=== PATIENT | male | born 1940 | race Caucasian/White ===

== ENCOUNTER → 2018-08-28 | Outpatient (CLI) | payer MEDICARE, OTHER ==
--- NOTE | 2018-08-28 11:07 | XR ---
EXAMINATION TYPE: XR chest 2V DATE OF EXAM: 08/28/2018 COMPARISON: Prior chest x-ray and chest CT 03/23/2014 HISTORY: Shortness of breath and cough, emphysema TECHNIQUE: Frontal and lateral views of the chest are obtained. FINDINGS: Hyperinflation is compatible with underlying COPD. Interstitium is increased as on prior e xam. Aorta is dense. Prominence of pulmonary artery may be due to pulmonary hypertension. Heart size is stable. No evident airspace disease, pneumothorax, or pleural effusion. Coronary artery calcificat ions are present. IMPRESSION: Interstitial lung disease, emphysema, coronary artery disease, additional findings above .
== END | disposition home or self-care (01) ==
LOC: RADXRMAIN 09:56
PROVIDERS: ATTEND Internal Medicine
DX: J84.9 Interstitial pulmonary disease, unspecified (principal); J43.9 Emphysema, unspecified; I25.10 Atherosclerotic heart disease of native coronary artery without angina pectoris
CPT/HCPCS: 71046

== ENCOUNTER 2019-08-20 10:39 | Inpatient (IN) | payer MEDICARE, OTHER ==
[2019-08-20] MEDS ORDERED: SODIUM CHLORIDE 0.9% 1,000 ML IV STA (11:12)
[2019-08-20] MEDS ORDERED: SODIUM CHLORIDE 0.9% 500 ML 500 ML IV STA (11:12)
[2019-08-20] MEDS ORDERED: IPRATROPIUM-ALBUTEROL 3 ML NEB INHALATION STA (11:13)
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
--- NOTE | 2019-08-20 11:56 | XR ---
EXAMINATION TYPE: XR chest 2V DATE OF EXAM: 08/20/2019 COMPARISON: 08/28/2018 TECHNIQUE: PA and lateral views submitted. HISTORY: Shortness of breath FINDINGS: The lungs are clear and there is no pneumothorax, pleural effusion, or focal pneumonia. Diffuse hyp erexpansion. Diffuse osteopenia with arthropathy of the shoulders. Atherosclerotic change aorta. Subs egmental changes involving the lung bases. IMPRESSION: 1. COPD correlate for chronic interstitial lung disease with basilar atelectasis favored over pneumon ia. Findings similar to prior exam..
[2019-08-20 12:07] LABS: Partial Thromboplastin Time 28.2 sec (22.0-30.0)
[2019-08-20 12:18] LABS: Albumin 4.2 g/dL (3.5-5.0); Calcium 8.9 mg/dL (8.4-10.2); Magnesium 1.8 mg/dL (1.6-2.3); Phosphorus 4.4 mg/dL (2.5-4.5); Potassium 4.6 mmol/L (3.5-5.1); Total Bilirubin 0.4 mg/dL (0.2-1.3); Total Protein 7.1 g/dL (6.3-8.2)
[2019-08-20 12:20] LABS: HCT 43.1 % (39.0-53.0); HGB 14.5 gm/dL (13.0-17.5); MCH 34.1 pg (25.0-35.0); MCHC 33.6 g/dL (31.0-37.0); MCV 101.2 fL (80.0-100.0); Macrocytosis Slight; Mean Platelet Volume 8.2; Platelet Count 192 k/uL (150-450); RBC 4.26 m/uL (4.30-5.90); RDW 13.4 % (11.5-15.5); WBC 6.5 k/uL (3.8-10.6)
[2019-08-20 13:27] LABS: Appearance,Urine Clear (Clear); Bacteria,Urine Rare /hpf; Bilirubin,Urine Negative (Negative); Blood,Urine Trace (Negative); Color,Urine Yellow; Glucose,Urine (UA) Negative (Negative); Hyaline Casts,Urine 52 /lpf (0-2); Ketones,Urine Negative (Negative); Leukocyte Esterase,Urine Large (Negative); Mucus,Urine Occasional /hpf; Nitrite,Urine Negative (Negative); PH, Urine 5.5 (5.0-8.0); Protein,Urine Trace (Negative); RBC,Urine 5 /hpf (0-5); Specific Gravity,Urine 1.022 (1.001-1.035); Squamous Epithelial Cell,Urine 2 /hpf (0-4); Urobilinogen,Urine <2.0 mg/dL (<2.0); WBC,Urine 42 /hpf (0-5)
[2019-08-20 13:53] LABS: Band Neutrophils % 1 %; Myelocytes # (M) 0.07 k/uL (0); Myelocytes % 1 %; Nucleated Red Blood Cells 0 /100 WBC (0-0)
[2019-08-20 13:58] LABS: Lymphocytes # (M) 1.56 k/uL (1.0-4.8); Metamyelocytes # (M) 0.07 k/uL (0); Metamyelocytes % 1 %; Monocytes # (M) 0.78 k/uL (0-1.0); Neutrophils % (M) 60 %; Total Cells Counted 200
[2019-08-20] MEDS ORDERED: NALOXONE 0.4 MG/ML 1 ML VIAL IV PRN (14:03)
[2019-08-20] MEDS: SODIUM CHLORIDE 0.9% 1,000 ML IV SCH ×2 (17:11→20:56)
[2019-08-20] MEDS ORDERED: NITROGLYCERIN SL TABS 0.4 MG TAB SUBLINGUAL PRN (18:21)
[2019-08-20] MEDS ORDERED: ALBUTEROL NEBULIZED 2.5 MG/3 ML INHALATION PRN (18:21)
[2019-08-20] MEDS ORDERED: HYDROcodone/APAP 5-325MG 1 EACH TAB PO PRN (18:21)
[2019-08-20] MEDS ORDERED: ALPRAZolam 0.25 MG TAB PO PRN (18:21)
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
[2019-08-20] MEDS: APIXABAN 2.5 MG TABLET PO SCH (20:55)
[2019-08-20] MEDS: valACYclovir HCL 1,000 MG TABLET PO SCH (20:55)
[2019-08-20] MEDS: METOPROLOL TARTRATE 25 MG TAB PO SCH (20:55)
[2019-08-21 07:46] LABS: ALT 13 U/L (4-49); AST 19 U/L (17-59); African American GFR (CKD) >90 (>60 ml/min/1.73 sqM); Albumin 3.2 g/dL (3.5-5.0); Alkaline Phosphatase 58 U/L (38-126); Anion Gap 7 mmol/L; Blood Urea Nitrogen 18 mg/dL (9-20); Calcium 7.9 mg/dL (8.4-10.2); Carbon Dioxide 25 mmol/L (22-30); Chloride 101 mmol/L (98-107); Glucose 90 mg/dL (74-99); Non-African American GFR(CKD) 80 (>60 ml/min/1.73 sqM); Potassium 4.7 mmol/L (3.5-5.1); Sodium 133 mmol/L (137-145); Total Bilirubin 0.3 mg/dL (0.2-1.3); Total Protein 5.7 g/dL (6.3-8.2)
[2019-08-21 08:44] LABS: HCT 38.5 % (39.0-53.0); HGB 12.2 gm/dL (13.0-17.5); MCH 32.5 pg (25.0-35.0); MCHC 31.7 g/dL (31.0-37.0); MCV 102.3 fL (80.0-100.0); Macrocytosis Slight; Mean Platelet Volume 7.5; Platelet Count 157 k/uL (150-450); RBC 3.76 m/uL (4.30-5.90); RDW 13.5 % (11.5-15.5); WBC 4.3 k/uL (3.8-10.6)
[2019-08-21] MEDS: SERTRALINE 25 MG TAB PO SCH (08:48)
[2019-08-21] MEDS: valACYclovir HCL 1,000 MG TABLET PO SCH ×2 (08:48→21:51)
[2019-08-21] MEDS: ASPIRIN 81 MG PO SCH (08:48)
[2019-08-21] MEDS: PANTOPRAZOLE 40 MG TABLET PO SCH (08:48)
[2019-08-21] MEDS: METOPROLOL TARTRATE 25 MG TAB PO SCH ×2 (08:48→21:51)
[2019-08-21] MEDS: APIXABAN 2.5 MG TABLET PO SCH ×2 (08:48→21:51)
[2019-08-21 12:05] LABS: Eosinophils # (M) 0.13 k/uL (0-0.7); Lymphocytes # (M) 0.86 k/uL (1.0-4.8); Monocytes # (M) 0.65 k/uL (0-1.0); Neutrophils # (M) 2.67 k/uL (1.3-7.7); Neutrophils % (M) 62 %; Nucleated Red Blood Cells 0 /100 WBC (0-0); Total Cells Counted 100
--- NOTE | 2019-08-21 13:56 | P.PN ---
Subjective Progress Note Date: 08/21/19 Prem Dorsey is an 79-year-old male who presented to [facility] emergency room with a chief complaint of generalized weakness he was evaluated in emergency room and had evidence of urinary tract infection and hypotension he was given IV fluid boluses was started on IV antibiotic and was admitted to medical floor for further evaluation. Patient was recently seen in the office with large eruption of herpes zoster on his chest he was started on oral Valtrex. Patient has a known history of coronary artery disease, COPD, hypertension, gout, history of atrial fibrillation, and history of anemia. Patient use to smoke he quit many years ago he does not drink alcohol or use any kind of illicit drugs On 08/21/2019 patient was seen and examined on the medical floor he is alert and oriented 3 in no apparent distress, he is feeling better he is still complaining of some generalized weakness he is complaining of rash with burning on his right breast area otherwise no complaints there is no fever or chills no headache or dizziness no chest pain no shortness of breath no cough no nausea or vomiting no abdominal pain no diarrhea no burning was urination no frequency or urgency no hematuria Objective - Vital Signs Vital signs: Vital Signs Temp 98.3 F 08/21/19 07:50 Pulse 71 08/21/19 07:50 Resp 18 08/21/19 07:50 BP 123/72 08/21/19 07:50 Pulse Ox 93 L 08/21/19 07:50 Intake & Output 08/20/19 08/21/19 08/21/19 18:59 06:59 18:59 Output Total 200 200 Balance -200 -200 Weight 62.596 kg Output: Urine 200 200 Other: Voiding Method Toilet Toilet Urinal Urinal # Voids 1 2 2 # Bowel Movements 1 2 2 - Exam In general patient is alert and oriented 3 in no apparent distress HEENT head normocephalic and atraumatic Neck is supple no JVD no goiter no lymphadenopathy Chest exam reveals a few scattered rhonchi with mild wheezing Cardiac exam reveals regular heart sounds S1 and S2 no gallops no murmurs Abdomen is soft nontender no organomegaly with normal bowel sounds Extremity exam reveals no edema no cyanosis or clubbing Neurological examination reveals no gross focal deficits Skin exam reveals large area of rash extending from the right breast all the way to the back was multiple areas of ulcerations. - Labs CBC & Chem 7: 08/21/19 06:54 08/21/19 06:54 Labs: Abnormal Lab Results - Last 24 Hours (Table) 08/20/19 08/21/19 08/21/19 Range/Units 11:17 06:54 06:54 RBC 3.76 L (4.30-5.90) m/uL Hgb 12.2 L (13.0-17.5) gm/dL Hct 38.5 L (39.0-53.0) % MCV 102.3 H (80.0-100.0) fL Lymphocytes # (Manual) 0.86 L (1.0-4.8) k/uL Metamyelocytes # (Man) 0.07 H (0) k/uL Myelocytes # (Manual) 0.07 H (0) k/uL Sodium 133 L (137-145) mmol/L Calcium 7.9 L (8.4-10.2) mg/dL Total Protein 5.7 L (6.3-8.2) g/dL Albumin 3.2 L (3.5-5.0) g/dL Microbiology - Last 24 Hours (Table) 08/20/19 13:10 Urine Culture - Preliminary Urine,Voided Assessment and Plan Plan: 1. Urinary tract infection, maintained on IV antibiotic ceftriaxone 2. Sepsis with hypotension 3. Underlying history of COPD 4. Underlying history of hypertension 5. Underlying history of coronary artery disease 6. Large area of herpes zoster eruption, maintained on Valtrex At this time patient was started on IV fluid and IV antibiotic Blood culture and urine culture were ordered, infectious disease consultation requested Continue with Valtrex for herpes zoster eruption Will follow closely
[2019-08-22] MEDS: SODIUM CHLORIDE 0.9% 1,000 ML IV SCH (06:27)
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
[2019-08-22 08:14] LABS: HGB 11.5 gm/dL (13.0-17.5); MCH 32.4 pg (25.0-35.0); MCHC 31.9 g/dL (31.0-37.0); MCV 101.4 fL (80.0-100.0); Macrocytosis Slight; Mean Platelet Volume 7.5; Platelet Count 171 k/uL (150-450); RBC 3.55 m/uL (4.30-5.90); RDW 13.4 % (11.5-15.5); WBC 4.2 k/uL (3.8-10.6)
[2019-08-22 08:15] VITALS: TEMP 98.2
[2019-08-22 08:30] LABS: ALT 12 U/L (4-49); AST 20 U/L (17-59); African American GFR (CKD) >90 (>60 ml/min/1.73 sqM); Alkaline Phosphatase 51 U/L (38-126); Anion Gap 4 mmol/L; Blood Urea Nitrogen 12 mg/dL (9-20); Calcium 8.2 mg/dL (8.4-10.2); Carbon Dioxide 27 mmol/L (22-30); Chloride 101 mmol/L (98-107); Glucose 92 mg/dL (74-99); Non-African American GFR(CKD) 82 (>60 ml/min/1.73 sqM); Potassium 4.6 mmol/L (3.5-5.1); Sodium 132 mmol/L (137-145); Total Bilirubin 0.3 mg/dL (0.2-1.3); Total Protein 5.7 g/dL (6.3-8.2)
[2019-08-22 09:13] LABS: Eosinophils # (M) 0.29 k/uL (0-0.7); Lymphocytes # (M) 0.97 k/uL (1.0-4.8); Monocytes # (M) 0.42 k/uL (0-1.0); Neutrophils # (M) 2.52 k/uL (1.3-7.7); Neutrophils % (M) 60 %; Nucleated Red Blood Cells 0 /100 WBC (0-0); Total Cells Counted 100
[2019-08-22] MEDS: ASPIRIN 81 MG PO SCH (09:41)
[2019-08-22] MEDS: valACYclovir HCL 1,000 MG TABLET PO SCH (09:41)
[2019-08-22] MEDS: SERTRALINE 25 MG TAB PO SCH (09:41)
[2019-08-22] MEDS: METOPROLOL TARTRATE 25 MG TAB PO SCH (09:41)
[2019-08-22] MEDS: APIXABAN 2.5 MG TABLET PO SCH (09:41)
[2019-08-22] MEDS: PANTOPRAZOLE 40 MG TABLET PO SCH (09:42)
--- NOTE | 2019-08-22 13:44 | P.DS ---
Providers Date of admission: 08/22/19 08:58 Expected date of discharge: 08/22/19 Attending physician: Carlo Kennedy Consults: 08/20/19 18:33 Consult Physician Routine Consulting Provider: Tatiana Campos Consult Reason/Comments: sepsis, UTI Do you want consulting provider notified?: Yes Primary care physician: Carlo Kennedy [facility] Course: Diagnosis on discharge: 1. Urinary tract infection, maintained on IV antibiotic ceftriaxone 2. Sepsis with hypotension 3. Underlying history of COPD 4. Underlying history of hypertension 5. Underlying history of coronary artery disease 6. Large area of herpes zoster eruption, maintained on Valtrex 7. Acute renal failure due to acute kidney injury due to prerenal azotemia Hospital course: Prem Dorsey is an 79-year-old male who presented to [facility] emergency room with a chief complaint of generalized weakness he was evaluated in emergency room and had evidence of urinary tract infection and hypotension he was given IV fluid boluses was started on IV antibiotic and was admitted to medical floor for further evaluation. Patient was recently seen in the office with large eruption of herpes zoster on his chest he was started on oral Valtrex. Patient has a known history of coronary artery disease, COPD, hypertension, gout, history of atrial fibrillation, and history of anemia. Patient use to smoke he quit many years ago he does not drink alcohol or use any kind of illicit drugs On 08/21/2019 patient was seen and examined on the medical floor he is alert and oriented 3 in no apparent distress, he is feeling better he is still complaining of some generalized weakness he is complaining of rash with burning on his right breast area otherwise no complaints there is no fever or chills no headache or dizziness no chest pain no shortness of breath no cough no nausea or vomiting no abdominal pain no diarrhea no burning was urination no frequency or urgency no hematuria On 08/22/2019 patient was seen and examined on the medical floor he is alert and oriented 3 in no apparent distress there is no fever or chills no headache or dizziness no chest pain no shortness of breath no cough no nausea or vomiting no abdominal pain no diarrhea no burning with urination no frequency or urgency and no hematuria, urine culture revealed 50-100,000 colonies of genital mark. Patient is feeling well his blood pressure has normalized his kidney function has improved. Patient will be switched to oral antibiotic and will be discharged home he will be followed in our office within 1 week. He was told to continue course of Valtrex for the large area of herpes zoster eruption on his chest and back. Patient Condition at Discharge: Serious Plan - Discharge Summary New Discharge Prescriptions: New Cefdinir [Omnicef] 300 mg PO Q12HR 10 Days #20 capsule valACYclovir HCL [Valtrex] 1,000 mg PO BID tablet Continue Nitroglycerin Sl Tabs [Nitrostat] 0.4 mg SUBLINGUAL Q5M PRN PRN Reason: Chest Pain ALPRAZolam 0.25 mg PO Q8H PRN PRN Reason: Anxiety Metoprolol Tartrate 25 mg PO BID Omeprazole [PriLOSEC] 40 mg PO AC-BRKFST #90 cap HYDROcodone/APAP 5-325MG [[place] 5-325] 1 tab PO TID PRN PRN Reason: Pain Apixaban [Eliquis] 2.5 mg PO BID Aspirin EC [Ecotrin Low Dose] 81 mg PO DAILY Sertraline HCl [Zoloft] 25 mg PO DAILY Ergocalciferol [Vitamin D2 (DRISDOL)] 50,000 unit PO MO Albuterol Inhaler [Ventolin Hfa Inhaler] 2 puff INHALATION RT-QID PRN PRN Reason: Shortness Of Breath Discharge Medication List ALPRAZolam 0.25 mg PO Q8H PRN 03/18/14 [History] Nitroglycerin Sl Tabs [Nitrostat] 0.4 mg SUBLINGUAL Q5M PRN 03/18/14 [History] Metoprolol Tartrate 25 mg PO BID 03/19/14 [History] Omeprazole [PriLOSEC] 40 mg PO AC-BRKFST #90 cap 03/21/14 [Rx] Albuterol Inhaler [Ventolin Hfa Inhaler] 2 puff INHALATION RT-QID PRN 08/20/19 [History] Apixaban [Eliquis] 2.5 mg PO BID 08/20/19 [History] Aspirin EC [Ecotrin Low Dose] 81 mg PO DAILY 08/20/19 [History] Ergocalciferol [Vitamin D2 (DRISDOL)] 50,000 unit PO MO 08/20/19 [History] HYDROcodone/APAP 5-325MG [[place] 5-325] 1 tab PO TID PRN 08/20/19 [History] Sertraline HCl [Zoloft] 25 mg PO DAILY 08/20/19 [History] Cefdinir [Omnicef] 300 mg PO Q12HR 10 Days #20 capsule 08/22/19 [Rx] valACYclovir HCL [Valtrex] 1,000 mg PO BID tablet 08/22/19 [Rx] Follow up Appointment(s)/Referral(s): Carlo Kennedy MD [Primary Care Provider] - 1-2 days (office closed at time of discharge. Please call to make appointment) Patient Instructions/Handouts: Dehydration (DC), Urinary Tract Infection in Men (DC)
[2019-08-22 15:08] VITALS: BP 168/84; PULSE 57; RESP 16
--- NOTE | 2019-08-22 15:29 | PN ---
PROGRESS NOTE DATE OF SERVICE: 08/22/2019 REASON FOR FOLLOWUP: 1. Shingles. 2. Possible UTI. INTERVAL HISTORY: The patient is currently afebrile. Patient is feeling much better, breathing comfortably. Denies having any chest pain. No shortness of breath or cough. No abdominal pain or diarrhea. Overall feeling better. PHYSICAL EXAMINATION: Blood pressure 116/70 with a pulse of 58, temperature 98.2. He is 93% on 2 L nasal cannula. General description is an elderly male, up in the bed in no distress. RESPIRATORY SYSTEM: Unlabored breathing, clear to auscultation anteriorly. HEART: S1, S2. Regular rate and rhythm. ABDOMEN: Soft, no tenderness. LABS: Hemoglobin 11.5, white count 4.2, creatinine 0.84, blood and urine so far negative. DIAGNOSTIC IMPRESSION AND PLAN: 1. Patient admitted to the hospital with generalized weakness, likely multifactorial, possible dehydration with medication effect and possible component of urinary tract infection. The patient seemed to have shown overall clinical improvement. Continue short course of oral Ceftin. 2. Patient with shingles. Finish a 7-day course of oral Valtrex. Local care can be with dry Aquacel dressing to keep the area dry and off the pressure. MMODL / IJN: [id number] /
[2019-08-22] MEDS ORDERED: CEFDINIR 300 MG CAP PO SCH (21:00)
[2019-08-25] MEDS ORDERED: ERGOCALCIFEROL 50,000 UNIT CAP PO SCH (09:00)
== END 2019-08-22 15:13 | disposition home or self-care (01) | DRG 872 ==
LOC: EC 10:39 → 4SSUR 14:03 → OBSVTOIN 08-22 08:58
PROVIDERS: ADMIT Internal Medicine; ATTEND Internal Medicine
DX: A41.9 Sepsis, unspecified organism (principal); N17.9 Acute kidney failure, unspecified; N39.0 Urinary tract infection, site not specified; E87.1 Hypo-osmolality and hyponatremia; I42.9 Cardiomyopathy, unspecified; I11.0 Hypertensive heart disease with heart failure; E78.5 Hyperlipidemia, unspecified; I25.10 Atherosclerotic heart disease of native coronary artery without angina pectoris; B02.9 Zoster without complications; E86.0 Dehydration; I48.91 Unspecified atrial fibrillation; J44.9 Chronic obstructive pulmonary disease, unspecified; I50.9 Heart failure, unspecified; Z11.59 Encounter for screening for other viral diseases; Z79.899 Other long term (current) drug therapy; Z79.01 Long term (current) use of anticoagulants; Z79.82 Long term (current) use of aspirin; Z88.1 Allergy status to other antibiotic agents; I25.2 Old myocardial infarction; Z95.5 Presence of coronary angioplasty implant and graft; Z98.890 Other specified postprocedural states; Z90.49 Acquired absence of other specified parts of digestive tract; Z87.891 Personal history of nicotine dependence; Z80.3 Family history of malignant neoplasm of breast; Z80.0 Family history of malignant neoplasm of digestive organs
CPT/HCPCS: 36415; 71046; 80053; 81001; 83605; 83735; 84100; 84443; 84484; 85025; 85610; 85730; 87040; 87086; 93005; 94640; 96361; 96365; 99291

== ENCOUNTER 2019-09-15 12:14 | Observation (INO) | payer MEDICARE, OTHER ==
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
[2019-09-15 12:56] LABS: Basophils # (A) 0.1 k/uL (0-0.2); Basophils % (A) 1 %; Eosinophils # (A) 0.3 k/uL (0-0.7); Eosinophils % (A) 4 %; HCT 36.1 % (39.0-53.0); HGB 12.1 gm/dL (13.0-17.5); Lymphocytes # (A) 1.9 k/uL (1.0-4.8); Lymphocytes % (A) 25 %; MCH 34.7 pg (25.0-35.0); MCHC 33.6 g/dL (31.0-37.0); MCV 103.2 fL (80.0-100.0); Macrocytosis Slight; Mean Platelet Volume 7.9; Monocytes # (A) 0.5 k/uL (0-1.0); Monocytes % (A) 7 %; Neutrophils # (A) 4.7 k/uL (1.3-7.7); Neutrophils % (A) 62 %; Platelet Count 232 k/uL (150-450); RDW 15.7 % (11.5-15.5); WBC 7.6 k/uL (3.8-10.6)
[2019-09-15 13:05] LABS: Albumin 4.1 g/dL (3.5-5.0); Bilirubin,Unconjugated 0.5 mg/dL (0.0-1.1); Calcium 9.2 mg/dL (8.4-10.2); Magnesium 1.8 mg/dL (1.6-2.3); Potassium 4.8 mmol/L (3.5-5.1); Total Bilirubin 0.5 mg/dL (0.2-1.3); Total Protein 6.6 g/dL (6.3-8.2)
[2019-09-15 13:14] LABS: Partial Thromboplastin Time 24.1 sec (22.0-30.0); Prothrombin Time 10.3 sec (9.0-12.0)
[2019-09-15] MEDS ORDERED: PANTOPRAZOLE 40 MG/10 ML VIAL IVP ONE (13:23)
--- NOTE | 2019-09-15 13:24 | XR ---
EXAMINATION TYPE: XR chest 1V portable DATE OF EXAM: 09/15/2019 COMPARISON: 08/20/2019 HISTORY: Chest pain TECHNIQUE: Single frontal view of the chest is obtained. FINDINGS: Diffuse hyperinflation. There is subsegmental changes at both lung bases with no pleural e ffusion or pneumothorax. Diffuse osteopenia and arthropathy of the shoulders. No overt failure. Pulmo nary arteries are prominent in size and there is atherosclerotic change of the aorta. IMPRESSION: 1. COPD with basilar infiltrate or atelectasis. 2. Correlate for pulmonary arterial hypertension.
[2019-09-15] MEDS ORDERED: ONDANSETRON 4 MG/2 ML VIAL IVP PRN (14:08)
[2019-09-15] MEDS ORDERED: NALOXONE 0.4 MG/ML 1 ML VIAL IV PRN (14:08)
[2019-09-15] MEDS: SODIUM CHLORIDE 0.9% 1,000 ML IV SCH (14:36)
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
[2019-09-16] MEDS: SODIUM CHLORIDE 0.9% 1,000 ML IV SCH ×2 (02:37→16:16)
[2019-09-16 07:04] LABS: Basophils # (A) 0.1 k/uL (0-0.2); Basophils % (A) 1 %; Eosinophils # (A) 0.3 k/uL (0-0.7); Eosinophils % (A) 4 %; HCT 33.3 % (39.0-53.0); HGB 11.1 gm/dL (13.0-17.5); Lymphocytes # (A) 1.5 k/uL (1.0-4.8); Lymphocytes % (A) 25 %; MCH 34.2 pg (25.0-35.0); MCHC 33.2 g/dL (31.0-37.0); MCV 103.1 fL (80.0-100.0); Macrocytosis Moderate; Mean Platelet Volume 7.9; Monocytes # (A) 0.5 k/uL (0-1.0); Monocytes % (A) 9 %; Neutrophils # (A) 3.6 k/uL (1.3-7.7); Neutrophils % (A) 60 %; Platelet Count 211 k/uL (150-450); RBC 3.23 m/uL (4.30-5.90); RDW 15.9 % (11.5-15.5)
[2019-09-16 07:15] LABS: Potassium 5.1 mmol/L (3.5-5.1)
[2019-09-16 07:16] LABS: Albumin 3.4 g/dL (3.5-5.0); Calcium 8.5 mg/dL (8.4-10.2); Total Bilirubin 0.7 mg/dL (0.2-1.3); Total Protein 5.8 g/dL (6.3-8.2)
[2019-09-16] MEDS ORDERED: PANTOPRAZOLE 40 MG/10 ML VIAL IV SCH (09:00)
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
[2019-09-16] MEDS: METOPROLOL TARTRATE 25 MG TAB PO SCH ×2 (12:25→22:05)
[2019-09-16 13:58] VITALS: BMI 20.8
--- NOTE | 2019-09-16 17:15 | CONS ---
CONSULTATION DATE OF SERVICE: 09/16/2019 REASON FOR CONSULTATION: Mild anemia and black tarry stool. HISTORY OF PRESENT ILLNESS: The patient is an 79-year-old pleasant white male with history of atrial fibrillation who was on Eliquis, was admitted to the hospital because of black tarry stools that started on Sunday morning. He had about 4 or 5 of these episodes. He took his last dose of Eliquis was yesterday morning. He came into the emergency room, noted to have a hemoglobin of 11 g/dL and admitted to the hospital for further evaluation. Since being in the hospital, he did not have any episodes of further bleeding. He also complaining of epigastric discomfort but no nausea or vomiting. No prior history of peptic ulcer disease. Last EGD was in 2014. PAST MEDICAL HISTORY: Atrial fibrillation, on Eliquis, currently on hold. History of coronary artery disease, congestive heart failure, hypertension, hyperlipidemia. PAST SURGICAL HISTORY: Cardiac catheterization with stent placement, hernia repair, right carotid endarterectomy. MEDICATIONS: At home include Xanax, Nitrostat, metoprolol, Prilosec, Ventolin, Eliquis, aspirin, vitamin B12, [place], sertraline. ALLERGIES: LEVAQUIN. SOCIAL HISTORY: No smoking, no alcohol use. FAMILY HISTORY: Mother had breast cancer. Brother had stomach cancer. REVIEW OF SYSTEMS: CARDIOPULMONARY: No chest pain or shortness of breath. GENITOURINARY: No dysuria or hematuria. MUSCULOSKELETAL: Unremarkable. SKIN: Unremarkable. ENDOCRINE: Unremarkable. PSYCHIATRIC: Unremarkable. NEUROLOGY: Unremarkable. ENT: Vision unremarkable. GI: As mentioned above. HEMATOLOGY: Mild anemia. CONSTITUTIONAL: No recent weight loss. No fever, chills, night sweats. PHYSICAL EXAMINATION: Appears comfortable, in no apparent distress. Vital signs are stable. Blood pressure is 184/81, pulse rate 58, temperature 97.4. HEENT: Examination unremarkable, conjunctivae are pink, sclerae nonicteric, oral cavity no lesions. NECK: No JVD or lymph node enlargement. CHEST: Clear to auscultation. HEART: Regular rate and rhythm. ABDOMEN: Soft, bowel sounds are positive. No organomegaly. Mild tenderness in the epigastric area. EXTREMITIES: No pedal edema. SKIN: No rashes. NEUROLOGIC: Alert and oriented x3. No focal deficits. LABS: WBC is 7.6, hemoglobin 12.1, platelets normal. Hemoglobin today is 11.1. BUN is 23, creatinine 1.23. Stool occult blood positive. IMPRESSION: 1. This is a patient who presents to the hospital with black tarry stools for the last 3 days duration. 2. History of atrial fibrillation on Eliquis for several years, which is on hold since yesterday morning. The initial hemoglobin was 12 and dropped to 11.1 g/dL today. He is hemodynamically stable. He is also complaining of epigastric pain, most likely dealing with peptic ulcer disease or other upper GI pathology. 3. Atrial fibrillation on Eliquis, currently on hold. 4. Mild elevation of BUN. RECOMMENDATIONS: 1. Continue with Protonix 40 mg twice daily. 2. Start on a clear liquid diet. 3. Proceed with an upper endoscopy tomorrow. 4. Continue to hold Eliquis. 5. Monitor CBC on a daily basis. Will follow with you. Thank you for this consultation. MMODL / IJN: [id number] /
--- NOTE | 2019-09-16 19:08 | P.PN ---
Subjective Progress Note Date: 09/16/19 Prem Dorsey, is an 79-year-old male who presented to [facility] emergency room with a chief complaint of black stool that started on Sunday morning, patient had previous history of gastrointestinal bleeding, he also has a known history of atrial fibrillation maintained on Eliquis, he was evaluated in the emergency room and was admitted to medical floor Eliquis was held, and patient was started on IV Protonix, GI consultation was requested. Patient was seen and examined on the medical floor, he also complained of episodes of stabbing pain in the right side of his chest radiating to the back, lasting only a few seconds each time, troponin level were ordered and cardiology consultation was requested. Otherwise patient denies any complaints there is no fever or chills no headache or dizziness no shortness of breath no cough no nausea or vomiting no abdominal pain no diarrhea no burning with urination no frequency or urgency and no hematuria no weakness or numbness in any of his extremities no change in his vision speech or gait. Patient has a known history of hypertension, hyperlipidemia, atrial fibrillation, COPD, previous history of gastrointestinal bleeding, history of depression, and history of coronary artery disease with myocardial infarction in the past. On 09/16/2019 patient was seen and examined on the medical floor he is alert and oriented 3 in no apparent distress there is no fever or chills no headache or dizziness no chest pain no shortness of breath no cough no nausea or vomiting no abdominal pain no diarrhea no burning with urination no frequency or urgency and no hematuria, gastroenterology following awaiting decision regarding possible endoscopy. Objective - Vital Signs Vital signs: Vital Signs Temp 97.5 F L 09/16/19 07:25 Pulse 55 L 09/16/19 07:25 Resp 16 09/16/19 07:25 BP 161/82 09/16/19 07:25 Pulse Ox 99 09/16/19 07:25 Intake & Output 09/15/19 09/16/19 09/16/19 18:59 06:59 18:59 Weight 60.328 kg 60.328 kg Other: Voiding Method Toilet Toilet # Voids 1 1 - Exam In general patient is alert and oriented 3 in no apparent distress HEENT head normocephalic and atraumatic Neck is supple no JVD no goiter no lymphadenopathy Chest exam reveals a few scattered rhonchi no wheezing Cardiac exam reveals irregular heart sounds S1 and S2 no gallops no murmurs Abdomen is soft nontender no organomegaly with normal bowel sounds Extremity exam reveals no edema no cyanosis or clubbing Neurological examination reveals no gross focal deficit - Labs CBC & Chem 7: 09/16/19 06:47 09/16/19 06:47 Labs: Abnormal Lab Results - Last 24 Hours (Table) 09/15/19 09/15/19 09/16/19 Range/Units 12:44 12:44 06:47 RBC 3.50 L 3.23 L (4.30-5.90) m/uL Hgb 12.1 L 11.1 L (13.0-17.5) gm/dL Hct 36.1 L 33.3 L (39.0-53.0) % MCV 103.2 H 103.1 H (80.0-100.0) fL RDW 15.7 H 15.9 H (11.5-15.5) % Sodium 133 L (137-145) mmol/L BUN 23 H (9-20) mg/dL Glucose 123 H (74-99) mg/dL Total Protein (6.3-8.2) g/dL Albumin (3.5-5.0) g/dL 09/16/19 Range/Units 06:47 RBC (4.30-5.90) m/uL Hgb (13.0-17.5) gm/dL Hct (39.0-53.0) % MCV (80.0-100.0) fL RDW (11.5-15.5) % Sodium 135 L (137-145) mmol/L BUN (9-20) mg/dL Glucose (74-99) mg/dL Total Protein 5.8 L (6.3-8.2) g/dL Albumin 3.4 L (3.5-5.0) g/dL Assessment and Plan Plan: 1. Black tarry stools, hemoglobin is stable at 12.1 with check serial CBCs, Eliquis was held, patient was started on IV protonix, GI consultation was requested 2. Episodes of right sided chest pain with check, troponin levels and consult cardiology 3. Underlying history of coronary artery disease 4. Underlying history of atrial fibrillation 5. Previous history of peptic ulcer disease and history of gastrojejunostomy At this time will check serial CBCs serial troponins Consult gastroenterology consult cardiology Will follow closely
[2019-09-16] MEDS: PANTOPRAZOLE 40 MG/10 ML VIAL IV SCH (22:05)
[2019-09-17] MEDS: SODIUM CHLORIDE 0.9% 1,000 ML IV SCH ×2 (04:10→15:33)
[2019-09-17] MEDS: METOPROLOL TARTRATE 25 MG TAB PO SCH (05:20)
[2019-09-17 07:01] LABS: Basophils # (A) 0.1 k/uL (0-0.2); Basophils % (A) 1 %; Eosinophils # (A) 0.3 k/uL (0-0.7); Eosinophils % (A) 4 %; HCT 33.1 % (39.0-53.0); HGB 10.6 gm/dL (13.0-17.5); Lymphocytes # (A) 1.3 k/uL (1.0-4.8); Lymphocytes % (A) 20 %; MCH 33.3 pg (25.0-35.0); MCHC 32.1 g/dL (31.0-37.0); MCV 103.7 fL (80.0-100.0); Macrocytosis Moderate; Mean Platelet Volume 7.5; Monocytes # (A) 0.6 k/uL (0-1.0); Monocytes % (A) 10 %; Neutrophils # (A) 4.1 k/uL (1.3-7.7); Neutrophils % (A) 64 %; Platelet Count 195 k/uL (150-450); RBC 3.19 m/uL (4.30-5.90); RDW 15.6 % (11.5-15.5); WBC 6.4 k/uL (3.8-10.6)
[2019-09-17 07:20] LABS: ALT 9 U/L (4-49); AST 18 U/L (17-59); African American GFR (CKD) >90 (>60 ml/min/1.73 sqM); Albumin 3.3 g/dL (3.5-5.0); Alkaline Phosphatase 43 U/L (38-126); Anion Gap 4 mmol/L; Blood Urea Nitrogen 12 mg/dL (9-20); Calcium 8.6 mg/dL (8.4-10.2); Carbon Dioxide 29 mmol/L (22-30); Chloride 102 mmol/L (98-107); Glucose 94 mg/dL (74-99); Non-African American GFR(CKD) 81 (>60 ml/min/1.73 sqM); Potassium 4.4 mmol/L (3.5-5.1); Sodium 135 mmol/L (137-145); Total Bilirubin 0.6 mg/dL (0.2-1.3); Total Protein 5.5 g/dL (6.3-8.2)
[2019-09-17] MEDS: PANTOPRAZOLE 40 MG/10 ML VIAL IV SCH (07:47)
--- NOTE | 2019-09-17 13:14 | P.PN ---
Subjective HISTORY OF PRESENTING ILLNESS This is a pleasant 79-year-old male past medical history significant for coronary artery disease status post anterior wall myocardial infarction and PCI of the diagonal branch in 2008, paroxysmal atrial fibrillation on long-term anticoagulation, COPD, ischemic cardiomyopathy with improvement after PCI, hype rtension and former nicotine dependence. He follows in the office with Dr. Matthews. He is seen and examined resting comfortably lying flat in bed in no acute distress. He has had no further symptoms of chest discomfort, shortness of breath, dizziness or palpitations. He states he had a black stool last night. He is scheduled to undergo an EGD today. Blood pressure 173/80 heart rate 60 afebrile maintaining oxygen saturation on nasal cannula. Laboratory data reviewed, WBC 6.4, hemoglobin 10.6, platelets 195, sodium 135, potassium 4.4, creatinine 0.88. Echocardiogram has been obtained and will be reviewed. PHYSICAL EXAMINATION CONSTITUTIONAL: No apparent distress. HEENT: Head is normocephalic. Pupils are equal, round. Sclerae anicteric. Mucous membranes of the mouth are moist. No JVD. Right carotid bruit, none on the left. CHEST EXAMINATION: Scattered rhonchi throughout and expiratory wheezes. No rales. No chest wall tenderness is noted on palpation or with deep breathing. HEART EXAMINATION: Regular rate and rhythm. S1, S2 heard. Systolic ejection murmur at the base, no gallops or rub. EXTREMITIES: 2+ peripheral pulses, no lower extremity edema and no calf tenderness. ASSESSMENT Chest pain, atypical for angina. Pleuritic in nature. An acute event has been ruled out. Acute GI bleeding on long-term anticoagulation Paroxysmal atrial fibrillation maintained on Eliquis Coronary artery disease in the setting of an acute anterior wall AR status post PCI Ischemic cardiomyopathy, improved status post PCI COPD on home oxygen with likely acute exacerbation. Hypertension Former nicotine dependence PLAN Continue to hold Eliquis and aspirin pending GI workup. Initiate losartan 25 mg daily. Nurse Practitioner note has been reviewed, I agree with a documented findings and plan of care. Patient was seen and examined. Objective - Vital Signs Vital signs: Vital Signs Temp 97.6 F 09/17/19 07:42 Pulse 60 09/17/19 07:42 Resp 14 09/17/19 07:42 BP 173/80 09/17/19 07:42 Pulse Ox 96 09/17/19 07:42 Intake & Output 09/16/19 09/17/19 09/17/19 18:59 06:59 18:59 Intake Total 240 Balance 240 Weight 60.328 kg Intake: Oral 240 Other: Voiding Method Toilet Toilet Toilet # Voids 1 2 - Labs CBC & Chem 7: 09/17/19 06:27 09/17/19 06:27 Labs: Abnormal Lab Results - Last 24 Hours (Table) 09/17/19 09/17/19 Range/Units 06:27 06:27 RBC 3.19 L (4.30-5.90) m/uL Hgb 10.6 L (13.0-17.5) gm/dL Hct 33.1 L (39.0-53.0) % MCV 103.7 H (80.0-100.0) fL RDW 15.6 H (11.5-15.5) % Sodium 135 L (137-145) mmol/L Total Protein 5.5 L (6.3-8.2) g/dL Albumin 3.3 L (3.5-5.0) g/dL
[2019-09-17] MEDS ORDERED: LOSARTAN 25 MG TAB PO SCH (13:15)
[2019-09-17] MEDS ORDERED: LIDOCAINE 1% INJ 10MG/ML (20 ML MDV) ONE (14:29)
[2019-09-17] MEDS ORDERED: PROPOFOL 10 MG/ML 20 ML VIAL IV ONE (14:29)
[2019-09-17] MEDS ORDERED: IV FLUID CONTINUATION 1,000 ML IV ONE (14:30)
--- NOTE | 2019-09-17 15:16 | P.PCN ---
Date of Procedure: 09/17/19 Description of Procedure: BRIEF HISTORY: Patient is a 79-year-old male currently on anticoagulation therapy for atrial fibrillation who presented with black tarry stools. Hemoglobin 12 and subsequently found to be 11.1. No further signs or symptoms of GI bleeding since that time. Plan for EGD for further evaluation. PROCEDURE PERFORMED: Esophagogastroduodenoscopy. PREOPERATIVE DIAGNOSIS: Melena, anemia of acute blood loss, history of gastrojejunostomy. ESTIMATED BLOOD LOSS: Minimal. IV sedation per anesthesia. PROCEDURE: After informed consent was obtained, the patient was brought into the endoscopy unit. IV sedation was administered by Anesthesia under continuous monitoring. Initially the Olympus GIF-190 video endoscope was inserted into the mouth. Esophagus intubated without any difficulty. It was gradually advanced into the stomach and duodenum and also through the gastric jejunal anastomotic site and into the jejunum. The duodenum appeared normal. The scope was then withdrawn into the stomach and passed through the gastrojejunal anastomotic site into the jejunum which appeared normal with no old blood, active bleed or pathology to explain melena. The scope at this time was withdrawn to the stomach, adequately insufflated with air, and upon careful examination, mucosa of the antrum, body, cardia and the fundus as well as the anastomotic site appeared normal. The scope was then withdrawn into the esophagus. The GE junction was located at 39 cm from the incisors. The esophagus appeared normal. There were no erosions or ulcerations seen and the patient tolerated the procedure well. IMPRESSION: 1. No active bleeding, old blood or pathology to explain melena. 2. Anatomy consistent with prior gastrojejunostomy. RECOMMENDATIONS: The findings of this examination were discussed with the patient and his daughter. Okay to resume diet. Okay to resume medications and anticoagulation. Okay for discharge when otherwise medically stable.
[2019-09-17] MEDS ORDERED: LOSARTAN 25 MG TAB PO STA (15:38)
--- NOTE | 2019-09-17 16:00 | ECHOF ---
Referral Reason:sob, cp, hx cardiomyopathy MEASUREMENTS -------- HEIGHT: 170.2 cm WEIGHT: 60.3 kg BP: RVIDd: 3.2 cm (< 3.3) IVSd: 1.0 cm (0.6 - 1.1) LVIDd: 4.6 cm (3.9 - 5.3) LVPWd: 1.3 cm (0.6 - 1.1) IVSs: 1.7 cm LVIDs: 3.3 cm LVPWs: 1.1 cm LAESV Index (A-L): 30.11 ml/m Ao Diam: 4.1 cm (2.0 - 3.7) AV Cusp: 0.9 cm (1.5 - 2.6) LA Diam: 3.7 cm (2.7 - 3.8) MV EXCURSION: 20.130 mm (> 18.000) MV EF SLOPE: 70 mm/s (70 - 150) EPSS: 1.0 cm MV E Ruben: 0.58 m/s MV DecT: 522 ms MV A Ruben: 0.96 m/s MV E/A Ratio: 0.61 AV maxP.14 mmHg AV meanP.33 mmHg RAP: 5.00 mmHg RVSP: 50.66 mmHg FINDINGS -------- Sinus rhythm. This was a technically adequate study. The left ventricular size is normal. There is mild concentric left ventricular hypertrophy. Overa ll left ventricular systolic function is mild-moderately impaired with, an EF between 40 - 45 %. Mi d anterior LV wall motion is akinetic. Apical anterior LV wall motion is akinetic. Apical later al LV wall motion is akinetic. Apical septum LV wall motion is akinetic. The right ventricle is normal in size. LA is midly dilated 29-33ml/m2. The right atrial size is normal. xx ml of Lumason was utilized for enhancement of images. There is moderate aortic valve sclerosis. There is mild aortic stenosis present. Peak/mean gradie nt across the Aortic Valve is 22.14mmHg / 12.33mmHg. Mild mitral annular calcification present. Mild mitral regurgitation is present. The tricuspid valve appears structurally normal. Mild tricuspid regurgitation present. There is m oderate pulmonary hypertension. The right ventricular systolic pressure, as measured by Doppler, is 50.66mmHg. There is no pulmonic regurgitation present. The aortic root size is normal. IVC Not well visulized. There is no pericardial effusion. CONCLUSIONS -------- 1. There is mild concentric left ventricular hypertrophy. 2. Overall left ventricular systolic function is mild-moderately impaired with, an EF between 40 - 45 %. 3. Mid anterior LV wall motion is akinetic. 4. Apical anterior LV wall motion is akinetic. 5. Apical lateral LV wall motion is akinetic. 6. Apical septum LV wall motion is akinetic. 7. LA is midly dilated 29-33ml/m2. 8. xx ml of Lumason was utilized for enhancement of images. 9. There is moderate aortic valve sclerosis. 10. There is mild aortic stenosis present. 11. Peak/mean gradient across the Aortic Valve is 22.14mmHg / 12.33mmHg. 12. Mild mitral annular calcification present. 13. Mild mitral regurgitation is present. 14. Mild tricuspid regurgitation present. 15. There is moderate pulmonary hypertension. 16. There is no pulmonic regurgitation present. 17. There is no pericardial effusion. [employer] CLERK: Jessika Miller RDCS
--- NOTE | 2019-09-17 18:00 | P.DS ---
Providers Date of admission: 09/15/19 14:08 Expected date of discharge: 09/17/19 Attending physician: Carlo Kennedy Consults: 09/15/19 14:09 Consult Physician Routine Consulting Provider: Violeta Ruiz Consult Reason/Comments: gi bleed Do you want consulting provider notified?: Yes 09/15/19 20:20 Consult Physician Routine Consulting Provider: Bobby Salmeron Consult Reason/Comments: chest pain Do you want consulting provider notified?: Yes, Notify in am Primary care physician: Carlo [place] Course: diagnosis on discharge: 1. Black tarry stools, hemoglobin is stable at 12.1 with check serial CBCs, Eliquis was held, patient was started on IV protonix, GI consultation was requested 2. Episodes of right sided chest pain with check, troponin levels and consult cardiology 3. Underlying history of coronary artery disease 4. Underlying history of atrial fibrillation 5. Previous history of peptic ulcer disease and history of gastrojejunostomy Hospital course: Prem Dorsey, is an 79-year-old male who presented to [facility] emergency room with a chief complaint of black stool that started on Sunday morning, patient had previous history of gastrointestinal bleeding, he also has a known history of atrial fibrillation maintained on Eliquis, he was evaluated in the emergency room and was admitted to medical floor Eliquis was held, and patient was started on IV Protonix, GI consultation was requested. Patient was seen and examined on the medical floor, he also complained of episodes of stabbing pain in the right side of his chest radiating to the back, lasting only a few seconds each time, troponin level were ordered and cardiology consultation was requested. Otherwise patient denies any complaints there is no fever or chills no headache or dizziness no shortness of breath no cough no nausea or vomiting no abdominal pain no diarrhea no burning with urination no frequency or urgency and no hematuria no weakness or numbness in any of his extremities no change in his vision speech or gait. Patient has a known history of hypertension, hyperlipidemia, atrial fibrillation, COPD, previous history of gastrointestinal bleeding, history of depression, and history of coronary artery disease with myocardial infarction in the past. On 09/16/2019 patient was seen and examined on the medical floor he is alert and oriented 3 in no apparent distress there is no fever or chills no headache or dizziness no chest pain no shortness of breath no cough no nausea or vomiting no abdominal pain no diarrhea no burning with urination no frequency or urgency and no hematuria, gastroenterology following awaiting decision regarding possible endoscopy. On 09/17/2019 patient was seen and examined on the medical floor, he is alert and oriented in no apparent distress no U episodes of GI bleeding, patient was evaluated by gastroenterology and underwent EGD, which revealed no evidence of active bleeding or any pathology, patient was cleared by gastroenterology for discharge she was also evaluated by cardiology and was cleared for discharge, patient was restarted on his home medication including anticoagulation and was discharged home on 09/17/2019 he will be followed in our office in 2-3 days Patient Condition at Discharge: Fair Plan - Discharge Summary Discharge Rx Participant: No New Discharge Prescriptions: New Losartan [Cozaar] 25 mg PO DAILY tab Continue ALPRAZolam 0.25 mg PO Q8H PRN PRN Reason: Anxiety Omeprazole [PriLOSEC] 40 mg PO AC-BRKFST #90 cap HYDROcodone/APAP 5-325MG [Antoine 5-325] 1 tab PO TID PRN PRN Reason: Pain Aspirin EC [Ecotrin Low Dose] 81 mg PO DAILY Sertraline HCl [Zoloft] 25 mg PO DAILY Ergocalciferol [Vitamin D2 (DRISDOL)] 50,000 unit PO MO No Action Nitroglycerin Sl Tabs [Nitrostat] 0.4 mg SUBLINGUAL Q5M PRN PRN Reason: Chest Pain Metoprolol Tartrate 25 mg PO BID Apixaban [Eliquis] 2.5 mg PO BID Albuterol Inhaler [Ventolin Hfa Inhaler] 2 puff INHALATION RT-QID PRN PRN Reason: Shortness Of Breath Discharge Medication List ALPRAZolam 0.25 mg PO Q8H PRN 03/18/14 [History] Nitroglycerin Sl Tabs [Nitrostat] 0.4 mg SUBLINGUAL Q5M PRN 03/18/14 [History] Metoprolol Tartrate 25 mg PO BID 03/19/14 [History] Omeprazole [PriLOSEC] 40 mg PO AC-BRKFST #90 cap 03/21/14 [Rx] Albuterol Inhaler [Ventolin Hfa Inhaler] 2 puff INHALATION RT-QID PRN 08/20/19 [History] Apixaban [Eliquis] 2.5 mg PO BID 08/20/19 [History] Aspirin EC [Ecotrin Low Dose] 81 mg PO DAILY 08/20/19 [History] Ergocalciferol [Vitamin D2 (DRISDOL)] 50,000 unit PO MO 08/20/19 [History] HYDROcodone/APAP 5-325MG [Antoine 5-325] 1 tab PO TID PRN 08/20/19 [History] Sertraline HCl [Zoloft] 25 mg PO DAILY 08/20/19 [History] Losartan [Cozaar] 25 mg PO DAILY tab 09/17/19 [Rx] Follow up Appointment(s)/Referral(s): Carlo Kennedy MD [Primary Care Provider] - 1-2 days Isabelle Matthews MD [STAFF PHYSICIAN] - 2 Weeks Patient Instructions/Handouts: Hiatal Hernia (DC) Discharge Disposition: HOME SELF-CARE
[2019-09-19 08:04] VITALS: BP 147/72; PULSE 54; RESP 14; TEMP 97.3
== END 2019-09-17 16:22 | disposition home or self-care (01) ==
LOC: EC 12:14 → 1SOBS 14:08
PROVIDERS: ADMIT Internal Medicine; ATTEND Internal Medicine
DX: K92.1 Melena (principal); D62 Acute posthemorrhagic anemia; D75.89 Other specified diseases of blood and blood-forming organs; R07.89 Other chest pain; E78.5 Hyperlipidemia, unspecified; I11.0 Hypertensive heart disease with heart failure; I25.2 Old myocardial infarction; I25.10 Atherosclerotic heart disease of native coronary artery without angina pectoris; I25.5 Ischemic cardiomyopathy; I27.21 Secondary pulmonary arterial hypertension; I45.2 Bifascicular block; I48.0 Paroxysmal atrial fibrillation; I50.9 Heart failure, unspecified; J44.9 Chronic obstructive pulmonary disease, unspecified; J98.11 Atelectasis; Z79.01 Long term (current) use of anticoagulants; Z79.82 Long term (current) use of aspirin; Z79.899 Other long term (current) drug therapy; Z80.0 Family history of malignant neoplasm of digestive organs; Z80.3 Family history of malignant neoplasm of breast; Z87.11 Personal history of peptic ulcer disease; Z87.891 Personal history of nicotine dependence; Z98.61 Coronary angioplasty status; Z99.81 Dependence on supplemental oxygen; Z11.59 Encounter for screening for other viral diseases; Z88.1 Allergy status to other antibiotic agents
CPT/HCPCS: 93005 ×2; 96361; 96375 ×2; 96376 ×2; 96374; 99285; 36415; 80053 ×3; 84443; 82248; 83605; 83735; 84484 ×2; 85025 ×3; 85610; 85730; 82272; 71045; 43235; G0378 ×3; C8929; U0003; J2001; J2704; C9113 ×3; Q9950; 93306

== ENCOUNTER 2019-11-03 13:40 | Emergency (ER) | payer MEDICARE, OTHER ==
[2019-11-03 13:45] VITALS: TEMP 97.9
[2019-11-03] MEDS ORDERED: SODIUM CHLORIDE 0.9% 500 ML 500 ML IV STA (14:56)
[2019-11-03] MEDS ORDERED: MORPHINE SULFATE 2 MG/ML SYRINGE IVP STA (14:56)
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
--- NOTE | 2019-11-03 15:42 | XR ---
EXAMINATION TYPE: XR chest 2V DATE OF EXAM: 11/03/2019 CLINICAL HISTORY: Chest pain TECHNIQUE: Frontal and lateral views of the chest are obtained. COMPARISON: 09/15/2019 chest radiograph FINDINGS: The lungs are hyperinflated with redemonstrated chronic interstitial coarsening, diaphragm atic flattening, and apical thickening. The cardiomediastinal silhouette is within normal limits for size. Pulmonary arteries are again prominent. Atherosclerotic changes of the thoracic aorta. There is no focal air space opacity, pleural effusion, or pneumothorax seen. The osseous structures are intac t. IMPRESSION: Emphysematous changes. No focal air space opacity.
[2019-11-03 15:58] LABS: Potassium 4.8 mmol/L (3.5-5.1)
[2019-11-03 15:59] LABS: Albumin 3.8 g/dL (3.5-5.0); Calcium 9.2 mg/dL (8.4-10.2); Total Bilirubin 0.3 mg/dL (0.2-1.3); Total Protein 6.4 g/dL (6.3-8.2)
--- NOTE | 2019-11-03 16:02 | CT ---
EXAMINATION TYPE: CT brain wo con DATE OF EXAM: 11/03/2019 COMPARISON: None INDICATION: Headache for 5 days without relief, loss of appetite and weakness DLP: 1084.4 mGycm, Automated exposure control for dose reduction was used. CONTRAST: None CT of the brain is performed utilizing 3 mm thick sections through the posterior fossa and 3 mm thick sections through the remaining calvarium. Study is performed within 24 hours of arrival to the hosp ital. No abnormal hyperdensity is present to suggest an acute intracranial hemorrhage. No mass lesion is evident. No acute infarcts are evident. Ventricles and sulci are prominent for the patient age. Paranasal sinuses and mastoid air cells within the [id number] are clear. IMPRESSIONS: 1. Atrophy. 2. No acute intracranial process radiographically evident
[2019-11-03] MEDS ORDERED: NYSTATIN 100,000 UNIT/ML SUSP 500,000 UNIT/5 ML CUP PO STA (16:17)
[2019-11-03 16:22] LABS: Basophils # (A) 0.1 k/uL (0-0.2); Basophils % (A) 1 %; Eosinophils # (A) 0.3 k/uL (0-0.7); Eosinophils % (A) 4 %; HCT 38.3 % (39.0-53.0); HGB 12.1 gm/dL (13.0-17.5); Hypochromasia Slight; Lymphocytes # (A) 1.3 k/uL (1.0-4.8); Lymphocytes % (A) 19 %; MCH 33.1 pg (25.0-35.0); MCHC 31.6 g/dL (31.0-37.0); MCV 104.7 fL (80.0-100.0); Macrocytosis Moderate; Mean Platelet Volume 7.7; Monocytes # (A) 0.5 k/uL (0-1.0); Monocytes % (A) 7 %; Neutrophils # (A) 4.8 k/uL (1.3-7.7); Neutrophils % (A) 67 %; Platelet Count 260 k/uL (150-450); RBC 3.65 m/uL (4.30-5.90); RDW 15.1 % (11.5-15.5); WBC 7.2 k/uL (3.8-10.6)
[2019-11-03 16:24] LABS: INR 0.9 (<1.2); Prothrombin Time 9.7 sec (9.0-12.0)
[2019-11-03] MEDS ORDERED: FLUCONAZOLE 100 MG TAB PO ONE (18:05)
[2019-11-03 18:25] VITALS: BP 129/61; PULSE 56; RESP 16
== END 2019-11-03 18:30 | disposition other institution (70) ==
LOC: EC 13:40
DX: R07.89 Other chest pain (principal); R51 Headache; B37.0 Candidal stomatitis; I48.91 Unspecified atrial fibrillation; I25.119 Atherosclerotic heart disease of native coronary artery with unspecified angina pectoris; I11.9 Hypertensive heart disease without heart failure; E78.5 Hyperlipidemia, unspecified; J44.9 Chronic obstructive pulmonary disease, unspecified; I50.9 Heart failure, unspecified; I25.2 Old myocardial infarction; Z95.5 Presence of coronary angioplasty implant and graft; Z79.01 Long term (current) use of anticoagulants; Z79.82 Long term (current) use of aspirin; Z79.899 Other long term (current) drug therapy; Z87.891 Personal history of nicotine dependence; Z88.1 Allergy status to other antibiotic agents
CPT/HCPCS: 36415; 93005; 80053; 83690; 83735; 84484; 85025; 85610; 85730; 87081; 87430; 71046; 70450; 99285; 96374; 96361 ×2; J2270

== ENCOUNTER 2019-11-09 11:11 | Observation (INO) | payer MEDICARE, OTHER ==
[2019-11-09] MEDS ORDERED: ACETAMINOPHEN TAB 325 MG TAB PO STA (11:47)
[2019-11-09] MEDS ORDERED: DEXAMETHASONE SOD PHOSPHATE 4 MG/ML 1 ML VIAL IV STA (11:54)
[2019-11-09] MEDS ORDERED: NALOXONE 0.4 MG/ML 1 ML VIAL IV PRN (11:58)
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
[2019-11-09 12:15] LABS: Basophils # (A) 0.1 k/uL (0-0.2); Basophils % (A) 1 %; Eosinophils # (A) 0.3 k/uL (0-0.7); Eosinophils % (A) 3 %; HCT 41.5 % (39.0-53.0); HGB 13.3 gm/dL (13.0-17.5); Lymphocytes # (A) 1.6 k/uL (1.0-4.8); Lymphocytes % (A) 16 %; MCH 33.4 pg (25.0-35.0); MCHC 32.1 g/dL (31.0-37.0); MCV 103.8 fL (80.0-100.0); Macrocytosis Slight; Mean Platelet Volume 8.2; Monocytes # (A) 0.7 k/uL (0-1.0); Monocytes % (A) 7 %; Neutrophils # (A) 7.2 k/uL (1.3-7.7); Neutrophils % (A) 71 %; Platelet Count 280 k/uL (150-450); RBC 3.99 m/uL (4.30-5.90); RDW 14.9 % (11.5-15.5); WBC 10.1 k/uL (3.8-10.6)
[2019-11-09 12:28] LABS: ALT 12 U/L (4-49); AST 33 U/L (17-59); African American GFR (CKD) >90 (>60 ml/min/1.73 sqM); Albumin 4.4 g/dL (3.5-5.0); Alkaline Phosphatase 67 U/L (38-126); Anion Gap 9 mmol/L; Blood Urea Nitrogen 16 mg/dL (9-20); Calcium 9.5 mg/dL (8.4-10.2); Carbon Dioxide 25 mmol/L (22-30); Chloride 100 mmol/L (98-107); Glucose 101 mg/dL (74-99); Non-African American GFR(CKD) 84 (>60 ml/min/1.73 sqM); Potassium 4.7 mmol/L (3.5-5.1); Sodium 134 mmol/L (137-145); Total Bilirubin 0.5 mg/dL (0.2-1.3)
[2019-11-09 15:41] VITALS: RESP 16
--- NOTE | 2019-11-09 17:36 | CT ---
EXAMINATION TYPE: CT soft tissue neck w con DATE OF EXAM: 11/09/2019 COMPARISON: None HISTORY: 79-year-old male pain, Uvula mass/throat mass. TECHNIQUE: Contiguous axial scanning of the soft tissues of the neck performed with IV Contrast, los ent injected with 100 mL of Isovue 300. Coronal/sagittal reconstructions performed. CT DLP: 217.6 mGycm Automated exposure control for dose reduction was used. FINDINGS: Visualized intracranial structures, orbits and globes appear clear. Hypoplastic mastoid air cells. Tr glory mucosal thickening right maxillary sinus and rightward nasal septal deviation. Nasopharynx appears clear. There seems to be thickening of the median and left paramedian posterior aspect of the soft palate/uv demetris measuring up to 1.9 x 1.6 x 0.8 cm, refer to axial image 68 and coronal image 37. This will need to be further evaluated with direct inspection to exclude neoplasm. Oropharynx otherwise appears clear. Epiglottis and prevertebral soft tissues are within normal limits . Glottic and subglottic structures as well as the tracheal column appear clear. Moderate to advanced upper lung emphysema. Moderate vascular calcifications noted with possible moder ate to severe narrowing of the left greater than right carotid bulb. The thyroid gland is small and atrophic. There is left station 2A cervical lymphadenopathy with lymph nodes measuring up to 4.0 x 2.0 x 2.6 cm , for example, refer to axial image 65, coronal image 44, and sagittal image 58. Bones: Moderate degenerative disc disease throughout the cervical spine. IMPRESSION: 1. SOME FOCAL THICKENING ALONG THE MIDLINE AND LEFT PARAMEDIAN POSTERIOR ASPECT OF THE SOFT PALATE/UV DEMETRIS ESTIMATED AT 1.9 X 1.6 X 0 POINT CENTIMETERS. THIS WILL REQUIRE FURTHER EVALUATION WITH DIRECT IN SPECTION AND POSSIBLE SOFT TISSUE SAMPLING TO EXCLUDE NEOPLASM. 2. ABNORMAL AND SUSPICIOUS LEFT UPPER CERVICAL LYMPHADENOPATHY WITH A CONGLOMERATE OF NODES MEASURING UP TO 4.0 X 2.6 X 2.0 CM. METASTATIC DISEASE NOT EXCLUDED.
[2019-11-09] MEDS ORDERED: ALPRAZolam 0.25 MG TAB PO PRN (17:56)
[2019-11-09] MEDS ORDERED: NITROGLYCERIN SL TABS 0.4 MG TAB SUBLINGUAL PRN (17:56)
[2019-11-09] MEDS ORDERED: ALBUTEROL NEBULIZED 2.5 MG/3 ML INHALATION PRN (17:56)
[2019-11-09] MEDS: LOSARTAN 50 MG TAB PO SCH (18:17)
[2019-11-09] MEDS: METOPROLOL TARTRATE 25 MG TAB PO SCH (18:17)
[2019-11-09] MEDS: PANTOPRAZOLE 40 MG TABLET PO SCH (18:18)
[2019-11-09] MEDS ORDERED: SERTRALINE 25 MG TAB PO SCH (21:00)
--- NOTE | 2019-11-09 21:13 | CONS ---
CONSULTATION REASON FOR THE CONSULTATION: Dysphagia with chronic sore throat. HISTORY OF PRESENT ILLNESS: The patient is a very pleasant 79-year-old male who was recently admitted to [facility] via the emergency room department. The patient presented complaining of having significant throat pain and severe difficulty swallowing. Because of the patient's age and because of the family's wishes, the patient was admitted for further evaluation. The patient states that since approximately the middle of summer, he has noticed that he has had problems swallowing solid foods such as bread, certain meat, etc. He does not have any difficulty swallowing liquids. He relates that the food seems to either get stuck in his throat or take a long time going down. In addition to this, he complains that whenever he drinks certain cold liquids, such as water etc., these tend to cause pain or burning in the back of his throat and the pain at times is referred to his left ear. He denies running a temperature. He has history of smoking 1+ pack of [place] cigarettes daily and states that he quit in 2019 and has not used any tobacco products since that time. He admits to being on supplemental oxygen at home and also while he sleeps at night. He has seen his family physician on multiple occasions and has been treated for his sore throat with oral antibiotics and antifungal tablets/antifungal solutions. None of these measures have improved either his swallowing or the discomfort that he has been experiencing. At home he apparently takes narcotic pain tablets for the pain that he has. He also states that he feels that his left ear feels somewhat plugged at times. ALLERGIES: TO LEVAQUIN. His current home medications include Zoloft, Prilosec, Nitrostat, metoprolol, losartan, Fioricet, albuterol, Eliquis and supplemental oxygen during the day and during his sleep. There is a history of hypertension and COPD/emphysema but no history of diabetes mellitus. REVIEW OF SYSTEMS: CARDIOVASCULAR SYSTEM: Positive for hypertension and ASHD. The patient related that he has had stents placed in his heart and is currently having issues with weakness in his lower legs that are suggestive of possible peripheral vascular disease. RESPIRATORY SYSTEM: Positive for COPD/emphysema. GASTROINTESTINAL SYSTEM: Positive for gastroesophageal reflux disorder. The remainder of the review of systems is essentially unremarkable. PHYSICAL EXAMINATION: The patient is an 79-year-old male who is alert, cooperative and is in no acute distress at this time. HEENT examination: Patient is normocephalic. Tympanic membranes are normal. Middle ear space is free of any fluid or infection. Pupils equal, round, react to light and accommodation. Extraocular movements within normal limits. Intranasal examination reveals moderate to severe septal deviation, compensatory hypertrophy of inferior turbinates. Examination of the oropharynx reveals no suspicious lesions of the floor of the mouth or tongue. However, examination of the posterior pharynx reveals that there is a rather large approximately 1.5 x 2 cm irregular shaped mass that appears to be originating in the soft palate and involving the uvula/nasopharynx. There may also be some spillage over into the left tonsillar fossa. Palpation of the neck is negative for any obvious lymphadenopathy or neck masses. Cranial nerves 2 through 12 and the remainder of the head and neck exam are within normal limits. Chest/cardiovascular: Lung jay lung jay are clear to percussion and auscultation. Lung sounds are distant. The patient has regular sinus rhythm. S1, S2 are present. Peripheral pulses are bilaterally symmetrical. ABDOMEN: There is no evidence any masses megaly or tenderness. The abdomen is soft. Skin is unremarkable. Rectal exam: Rectal exam is deferred at this time because the patient has it done on regular basis at his family physician's office. The remainder of physical exam is essentially unremarkable. IMPRESSION: Mass of the soft palate/nasopharynx, suspect malignancy. PLAN: I had a lengthy discussion with the patient about his symptoms. I advised the patient that he does have a mass in his throat and that this can be better evaluated in my office under the appropriate conditions and with the appropriate equipment. In addition to this, this area will most likely need to be biopsied to get a definitive diagnosis and therefore formulate a treatment plan. I advised the nursing staff that the patient does not need to be on the antifungal medications or any antibiotics at this time. From an ENT standpoint, this patient could be discharged home tomorrow. I will be getting a CT scan of the neck with contrast today to evaluate the presence of any nonpalpable neck masses as well as to further evaluate the mass which appears to involve the uvula, soft palate, and extend up into the nasopharynx. I suspect that this that this mass has been there for at least 6-8 months, if not longer, and that the patient may have had some symptoms even earlier than this summer. The nursing staff was given my business card and advised that whenever the patient is discharged they should call my office and we should be again give him the next available appointment. Because of the Covid-19 crisis this appointment may not be able to be made until after the holiday. That is to say, if we cannot get him in the office this coming week then certainly the week after we will be able to see him. At that time I will be able to more extensively examine the patient with the proper office equipment and if necessary we will get him scheduled for a biopsy of this mass on an outpatient basis. All of the patient's questions were answered. I want to take the opportunity to thank you for allowing me to assist you in the care of your patient. If I could be of any further assistance, please feel free to call my office. WALKER / VI: [id number] / MARÍA
[2019-11-09] MEDS: APIXABAN 2.5 MG TABLET PO SCH (21:44)
[2019-11-10] MEDS: BUTALB/APAP/CAFF 50-325-40MG TAB PO SCH ×2 (01:26→08:07)
[2019-11-10 03:02] VITALS: TEMP 97.6
[2019-11-10] MEDS: APIXABAN 2.5 MG TABLET PO SCH (08:07)
[2019-11-10] MEDS: LOSARTAN 50 MG TAB PO SCH (08:07)
[2019-11-10] MEDS: PANTOPRAZOLE 40 MG TABLET PO SCH (08:07)
[2019-11-10] MEDS: METOPROLOL TARTRATE 25 MG TAB PO SCH (08:07)
[2019-11-10 08:11] VITALS: BP 164/76; PULSE 68
[2019-11-10] MEDS ORDERED: ASPIRIN 81 MG PO SCH (09:00)
[2019-11-10] MEDS ORDERED: ERGOCALCIFEROL 50,000 UNIT CAP PO SCH (09:00)
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
--- NOTE | 2019-11-10 19:47 | P.DS ---
Providers Date of admission: 11/09/19 12:12 Expected date of discharge: 11/10/19 Attending physician: Carlo Kennedy Consults: 11/09/19 12:15 Consult Physician Routine Consulting Provider: Prince Galicia Consult Reason/Comments: Throat lesions Do you want consulting provider notified?: Yes Primary care physician: Carlo Washington Hospital Course: Diagnosis on discharge: 1. Sore throat with evidence of swelling in the soft palate, with no improvements with oral antibiotic oral nystatin, patient was admitted to 24-hour observation, ENT consultation was requested, computed tomography scan of the neck was ordered, computed tomography scan was positive for focal thickening along the midline THE soft palate and uvula suspicious for malignancy. 2. Underlying history of COPD was chronic hypoxic respiratory failure maintained on home oxygen 3. Previous history of smoking 4. history of congestive heart failure, stable at this time 5. Underlying history of hypertension 6. Underlying history of coronary artery disease 7. Underlying history of atrial fibrillation 8. Underlying history of hyperlipidemia Hospital course: Prem Dorsey, is an 79-year-old male who presented to [facility] with a chief complaint of difficulty swallowing and a feeling of a lump in his throat, patient had similar symptoms as outpatient he received a course of oral antibiotic and a course of oral nystatin without any significant improvement in his symptoms, he was evaluated in the emergency room, there was evidence of swelling in the soft palate patient was admitted to 24-hour observation and ENT consultation was requested. Patient has a known history of COPD with chronic hypoxic respiratory failure re quiring home oxygen use, he also has a known history of hypertension, hyperlipidemia, coronary artery disease, congestive heart failure, he had a prolonged history of smoking he quit about 1 year ago. Patient was counseled in regard to computed tomography scan result and the need for biopsy he will follow-up in our office and will follow-up was ENT within the next week Patient Condition at Discharge: Stable Plan - Discharge Summary Discharge Rx Participant: Yes New Discharge Prescriptions: Continue Nitroglycerin Sl Tabs [Nitrostat] 0.4 mg SUBLINGUAL Q5M PRN PRN Reason: Chest Pain ALPRAZolam 0.25 mg PO Q8H PRN PRN Reason: Anxiety Metoprolol Tartrate 25 mg PO BID Omeprazole [PriLOSEC] 40 mg PO AC-BRKFST #90 cap Apixaban [Eliquis] 2.5 mg PO BID Aspirin EC [Ecotrin Low Dose] 81 mg PO DAILY Sertraline HCl [Zoloft] 25 mg PO HS Ergocalciferol [Vitamin D2 (DRISDOL)] 50,000 unit PO MO Albuterol Inhaler [Ventolin Hfa Inhaler] 2 puff INHALATION RT-QID PRN PRN Reason: Shortness Of Breath Butalb/APAP/Caff 50-325-40Mg [Fioricet 50-325-40] 1 tab PO Q8H Losartan Potassium 100 mg PO DAILY Fluconazole [Diflucan] 100 mg PO BID #28 tablet Nystatin 100,000 Unit/ml Susp [Mycostatin Oral Susp] 5 ml PO QID #140 ml Discharge Medication List ALPRAZolam 0.25 mg PO Q8H PRN 03/18/14 [History] Nitroglycerin Sl Tabs [Nitrostat] 0.4 mg SUBLINGUAL Q5M PRN 03/18/14 [History] Metoprolol Tartrate 25 mg PO BID 03/19/14 [History] Omeprazole [PriLOSEC] 40 mg PO AC-BRKFST #90 cap 03/21/14 [Rx] Albuterol Inhaler [Ventolin Hfa Inhaler] 2 puff INHALATION RT-QID PRN 08/20/19 [History] Apixaban [Eliquis] 2.5 mg PO BID 08/20/19 [History] Aspirin EC [Ecotrin Low Dose] 81 mg PO DAILY 08/20/19 [History] Ergocalciferol [Vitamin D2 (DRISDOL)] 50,000 unit PO MO 08/20/19 [History] Sertraline HCl [Zoloft] 25 mg PO HS 08/20/19 [History] Butalb/APAP/Caff 50-325-40Mg [Fioricet 50-325-40] 1 tab PO Q8H 11/03/19 [History] Fluconazole [Diflucan] 100 mg PO BID #28 tablet 11/03/19 [Rx] Losartan Potassium 100 mg PO DAILY 11/03/19 [History] Nystatin 100,000 Unit/ml Susp [Mycostatin Oral Susp] 5 ml PO QID #140 ml 11/03/19 [Rx] Follow up Appointment(s)/Referral(s): Prince Galicia MD [STAFF PHYSICIAN] - 11/19/19 1:00 pm Carlo Kennedy MD [Primary Care Provider] - 1-2 days Discharge Disposition: HOME SELF-CARE
== END 2019-11-10 12:38 | disposition home or self-care (01) ==
LOC: EC 11:11 → 1SOBS 12:12
PROVIDERS: ADMIT Internal Medicine; ATTEND Internal Medicine
DX: J38.7 Other diseases of larynx (principal); R13.10 Dysphagia, unspecified; J31.2 Chronic pharyngitis; R59.0 Localized enlarged lymph nodes; J34.2 Deviated nasal septum; J44.9 Chronic obstructive pulmonary disease, unspecified; J96.11 Chronic respiratory failure with hypoxia; Z87.891 Personal history of nicotine dependence; I50.9 Heart failure, unspecified; I11.0 Hypertensive heart disease with heart failure; I10 Essential (primary) hypertension; I25.10 Atherosclerotic heart disease of native coronary artery without angina pectoris; I48.91 Unspecified atrial fibrillation; E78.5 Hyperlipidemia, unspecified; J34.3 Hypertrophy of nasal turbinates; Z79.899 Other long term (current) drug therapy; Z79.82 Long term (current) use of aspirin; Z80.0 Family history of malignant neoplasm of digestive organs; Z80.3 Family history of malignant neoplasm of breast; Z79.01 Long term (current) use of anticoagulants; Z99.81 Dependence on supplemental oxygen
CPT/HCPCS: 96374; 99284; 36415; 80053; 85025; 70491; G0378 ×2; J1100; Q9967

== ENCOUNTER 2019-11-15 06:20 | Inpatient (IN) | payer MEDICARE, OTHER ==
[2019-11-15] MEDS ORDERED: ONDANSETRON 4 MG/2 ML VIAL IVP STA (06:38)
[2019-11-15] MEDS ORDERED: MORPHINE SULFATE 4 MG/ML SYRINGE IV STA (06:38)
[2019-11-15] MEDS ORDERED: SODIUM CHLORIDE 0.9% 500 ML 500 ML IV STA ×2 (06:38→07:31)
[2019-11-15 06:57] LABS: Basophils # (A) 0.1 k/uL (0-0.2); Basophils % (A) 1 %; Eosinophils # (A) 0.2 k/uL (0-0.7); Eosinophils % (A) 1 %; HCT 38.8 % (39.0-53.0); HGB 12.5 gm/dL (13.0-17.5); Lymphocytes # (A) 1.2 k/uL (1.0-4.8); Lymphocytes % (A) 9 %; MCH 33.7 pg (25.0-35.0); MCHC 32.2 g/dL (31.0-37.0); MCV 104.6 fL (80.0-100.0); Macrocytosis Moderate; Monocytes % (A) 7 %; Neutrophils # (A) 10.6 k/uL (1.3-7.7); Neutrophils % (A) 81 %; Platelet Count 247 k/uL (150-450); RBC 3.71 m/uL (4.30-5.90); RDW 14.4 % (11.5-15.5); WBC 13.2 k/uL (3.8-10.6)
[2019-11-15 07:02] LABS: INR 0.9 (<1.2); Partial Thromboplastin Time 25.8 sec (22.0-30.0); Prothrombin Time 9.9 sec (9.0-12.0)
[2019-11-15 07:05] LABS: Albumin 4.1 g/dL (3.5-5.0); Potassium 5.6 mmol/L (3.5-5.1); Total Bilirubin 0.8 mg/dL (0.2-1.3)
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
[2019-11-15] MEDS ORDERED: HYDROmorphone 1 MG/ML 1 ML SYRINGE IVP STA (07:33)
--- NOTE | 2019-11-15 07:42 | CT ---
EXAMINATION TYPE: CT abdomen pelvis w con DATE OF EXAM: 11/15/2019 COMPARISON: 05/16/2013 HISTORY: 79-year-old male with acute stomach pains, acute nonlocalized abdominal pain. TECHNIQUE: Contiguous axial scanning of the abdomen and pelvis following administration of 100 ml Iso tootie 300 IV contrast. Delayed images through the kidneys and coronal/sagittal reconstructions perform ed. CT DLP: 700.8 mGycm Automated exposure control for dose reduction was used. FINDINGS: Heart is normal in size without pericardial effusion. RCA coronary artery calcifications are present. Tiny hiatal hernia. Emphysematous change in the lower lungs. New patchy ground glass density posterio r right base. No pleural effusion. Mild aneurysm lower descending thoracic aorta at 3.2 cm. Moderate prostatic calcifications and plaque is present throughout. Fusiform infrarenal abdominal aortic aneurysm slightly larger at 3.2 cm versu s 2.8 cm, previously. Moderate to severe arthroscopic changes within the iliac arteries with segments of severe stenoses in the left common iliac artery and moderate to severe at the origin of the right common iliac artery. Additional segmental moderate stenoses bilateral external iliac arteries. The bile duct is dilated at 1.1 cm versus 9 mm in 2014. Possible nodular soft tissue prominence at th e ampulla, refer to coronal image 50. Mild intrahepatic biliary ductal dilatation also noted. The gallbladder is also hydropic measuring 11.2 x 4.9 cm wide. There is moderate adjacent free fluid tracking down the right paracolic gutter. 1.1 cm locule of air adjacent to the gallbladder fossa, axi al image 25 is of unclear etiology. Adrenal glands, kidneys, spleen, atrophic pancreas show no gross abnormality. Prominent fluid filled small bowel loops especially in the left side of the abdomen. No dilated small bowel or additional free air is seen. No mesenteric or retroperitoneal lymphadenopathy. Mild stool burden, more moderate within the ascending colon and sigmoid colon. No pericolonic inflamm atory change Prostate gland measures 4.6 cm wide. Possible 1 cm focus of enhancement within the left peripheral zo ne of the prostate gland, axial image 74. There is soft tissue impressing into the posterior bladder base suggesting BPH. Bladder prominently urine distended. No abnormal fluid collection in the pelvis or pelvic lymphadenopathy seen. Bones: Mild degenerative changes of the hips. Degenerative change right greater than left SI joints. Hypertrophic facet arthropathy mid to lower lumbar spine. IMPRESSION: 1. GALLBLADDER HYDROPS WITH MODERATE SURROUNDING EDEMA TRACKING DOWN THE RIGHT PARACOLIC GUTTER. FIND INGS HIGHLY SUGGESTIVE OF ACUTE CHOLECYSTITIS. 2. HOWEVER, IN ADDITION, THERE IS A 1 CM LOCULE OF AIR WITHIN THE FLUID ALONG THE RIGHT SIDE OF THE G ALLBLADDER FOSSA. THE EXACT ETIOLOGY IS UNCLEAR BUT WOULD SUGGEST SOME TYPE OF HOLLOW VISCUS PERFORAT ION. SURGICAL EVALUATION IS RECOMMENDED. 3. BILE DUCT IS ALSO DILATED AT 1.1 CM. NO DEFINITE SUSPICIOUS FILLING DEFECT IS SEEN. THERE IS SOME NODULAR SOFT TISSUE PROMINENCE AT THE AMPULLA. A SMALL EARLY NEOPLASM IS DIFFICULT TO ENTIRELY EXCLUD E. CORRELATE WITH ALKALINE PHOSPHATASE AND BILIRUBIN LEVELS TO EXCLUDE BILIARY OBSTRUCTION. ERCP C LINICALLY INDICATED. 4. COPD. NEW PATCHY GROUNDGLASS POSTERIOR RIGHT BASE. CORRELATE FOR ANY SYMPTOMS OF PNEUMONIA. 5. BPH. HOWEVER, THERE IS ALSO A 1 CM FOCUS OF ENHANCEMENT ALONG THE LEFT PERIPHERAL ZONE OF THE PROS RUIZ GLAND. CORRELATE WITH PHYSICAL EXAM FINDINGS AND PSA LEVELS TO EXCLUDE A FOCUS OF PROSTATE CANCE R. 6. PERIPHERAL ARTERIAL VASCULAR DISEASE. A 3.2 CM AAA HAS INCREASED FROM 2.9 CM IN 2014. SEGMENTS OF MODERATE TO SEVERE ATHEROSCLEROTIC NARROWING THROUGHOUT THE COMMON AND EXTERNAL ILIAC ARTERIES.
[2019-11-15] MEDS ORDERED: PIPERACILLIN-TAZOBACTAM 3.375 GM in SODIUM CHLORIDE 0.9% 100 ML IVPB STA (07:58)
[2019-11-15] MEDS ORDERED: NALOXONE 0.4 MG/ML 1 ML VIAL IV PRN (08:04)
[2019-11-15] MEDS ORDERED: HYDROmorphone 1 MG/ML 1 ML SYRINGE IVP PRN (08:04)
[2019-11-15] MEDS ORDERED: ONDANSETRON 4 MG/2 ML VIAL IVP PRN (08:04)
[2019-11-15] MEDS: SODIUM CHLORIDE 0.9% 1,000 ML IV SCH (08:23)
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
[2019-11-15] MEDS ORDERED: NITROGLYCERIN SL TABS 0.4 MG TAB SUBLINGUAL PRN (11:32)
[2019-11-15] MEDS ORDERED: ALBUTEROL HFA INHALER INHALATION PRN (11:32)
[2019-11-15] MEDS: HYDROmorphone 0.5 MG/0.5 ML SYRINGE IVP PRN ×3 (11:40→22:15)
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
[2019-11-15 15:20] VITALS: TEMP 98.9
[2019-11-15] MEDS: IPRATROPIUM-ALBUTEROL 3 ML NEB INHALATION PRN ×2 (15:20→20:04)
[2019-11-15] MEDS: PIPERACILLIN-TAZOBACTAM 3.375 GM in SODIUM CHLORIDE 0.9% 100 ML IVPB SCH (15:49)
[2019-11-15 16:58] LABS: Appearance,Urine Clear (Clear); Bilirubin,Urine Negative (Negative); Blood,Urine Negative (Negative); Color,Urine Yellow; Glucose,Urine (UA) Negative (Negative); Ketones,Urine Negative (Negative); Leukocyte Esterase,Urine Negative (Negative); Nitrite,Urine Negative (Negative); PH, Urine 5.5 (5.0-8.0); Protein,Urine Trace (Negative); Specific Gravity,Urine 1.045 (1.001-1.035); Urobilinogen,Urine <2.0 mg/dL (<2.0)
[2019-11-15] MEDS ORDERED: NALOXONE 0.4 MG/ML 10 ML VIAL IVP PRN (19:16)
[2019-11-15 19:19] LABS: Glucose,Whole Blood 118 mg/dL (75-99)
[2019-11-15 19:24] VITALS: RESP 20
[2019-11-15 19:25] LABS: ABG Base Excess -10.1 mmol/L; ABG HCO3 18 mmol/L (21-25); ABG Oxygen Saturation 91.4 % (94-97); ABG PCO2 43 mmHg (35-45); ABG PH 7.22 (7.35-7.45); ABG PO2 71 mmHg (83-108); ABG TCO2 19 mmol/L (19-24); Allen Test Performed? Yes
[2019-11-15 19:38] LABS: Glucose,Whole Blood 123 mg/dL (75-99)
--- NOTE | 2019-11-15 19:41 | XR ---
EXAMINATION TYPE: XR chest 1V portable DATE OF EXAM: 11/15/2019 COMPARISON: 11/03/2019 HISTORY: Respiratory distress TECHNIQUE: Single view FINDINGS: There is no heart failure nor confluent pneumonic infiltrate. Costophrenic angles are clear . Thoracic aorta is atheromatous. Bony thorax is intact. IMPRESSION: No active cardiopulmonary disease. Atheromatous aorta. Mild pulmonary fibrotic changes. N o change.
[2019-11-15 19:58] VITALS: BP 77/50
[2019-11-15 20:15] VITALS: PULSE 104
[2019-11-15 20:17] LABS: Calcium 8.2 mg/dL (8.4-10.2); Magnesium 1.8 mg/dL (1.6-2.3)
[2019-11-15 20:28] LABS: Potassium 6.2 mmol/L (3.5-5.1)
[2019-11-15 20:51] LABS: Basophils % (A) 0 %; Eosinophils # (A) 0.1 k/uL (0-0.7); Eosinophils % (A) 1 %; HCT 41.4 % (39.0-53.0); HGB 12.8 gm/dL (13.0-17.5); Hypochromasia Marked; Lymphocytes # (A) 1.2 k/uL (1.0-4.8); Lymphocytes % (A) 8 %; MCH 33.9 pg (25.0-35.0); MCHC 30.8 g/dL (31.0-37.0); Macrocytosis Marked; Mean Platelet Volume 8.3; Monocytes # (A) 0.8 k/uL (0-1.0); Monocytes % (A) 5 %; Neutrophils % (A) 84 %; Platelet Count 239 k/uL (150-450); RBC 3.77 m/uL (4.30-5.90); RDW 14.3 % (11.5-15.5); WBC 14.2 k/uL (3.8-10.6)
[2019-11-15 20:53] LABS: MCV 109.8 fL (80.0-100.0)
[2019-11-15] MEDS ORDERED: SERTRALINE 25 MG TAB PO SCH (21:00)
[2019-11-15] MEDS ORDERED: HEPARIN SODIUM,PORCINE 5,000 UNIT/ML 1 ML VIAL SQ SCH (21:00)
[2019-11-15] MEDS ORDERED: METOPROLOL TARTRATE 25 MG TAB PO SCH (21:00)
[2019-11-15] MEDS ORDERED: MORPHINE SULFATE 2 MG/ML SYRINGE IV PRN (22:01)
[2019-11-15] MEDS ORDERED: LORazepam 2 MG/ML INJ IV PRN (22:01)
[2019-11-15] MEDS ORDERED: SCOPOLAMINE 1.5MG/72HR PATCH TRANSDERM SCH (22:30)
[2019-11-15] MEDS ORDERED: MORPHINE SULFATE (100 MG/2 ML) 100 MG in SODIUM CHLORIDE 0.9% 100 ML IV SCH (22:30)
[2019-11-15] MEDS ORDERED: PANTOPRAZOLE 40 MG/10 ML VIAL IVP SCH (23:30)
[2019-11-15] MEDS ORDERED: DEXTROSE 5% IN WATER 1,000 ML with SODIUM BICARB (1 MEQ/ML) 150 ML IV SCH (23:50)
[2019-11-16] MEDS ORDERED: ARTIFICIAL TEARS-HYPROMELLOSE DROPS 15 ML BTL BOTH EYES PRN
[2019-11-16] MEDS ORDERED: ATROPINE OPHTH SOLN 1% 5ML BTL SUBLINGUAL PRN
[2019-11-16] MEDS: SODIUM CHLORIDE 0.9% 1,000 ML IV SCH (06:25)
[2019-11-16] MEDS: PIPERACILLIN-TAZOBACTAM 3.375 GM in SODIUM CHLORIDE 0.9% 100 ML IVPB SCH ×2 (06:25→08:15)
[2019-11-16] MEDS ORDERED: LOSARTAN 50 MG TAB PO SCH (09:00)
--- NOTE | 2019-11-16 09:47 | ECHOF ---
Referral Reason:pre op evaluation MEASUREMENTS -------- HEIGHT: 170.2 cm WEIGHT: 59.0 kg BP: 145/67 IVSd: 1.6 cm (0.6 - 1.1) LVIDd: 3.7 cm (3.9 - 5.3) LVPWd: 1.4 cm (0.6 - 1.1) EDV(Teich): 59 ml IVSs: 1.5 cm LVIDs: 3.0 cm LVPWs: 1.6 cm %IVS Thck: -7 % ESV(Teich): 36 ml EF(Teich): 39 % %FS: 19 % SV(Teich): 23 ml LVOT Diam: 2.4 cm RVIDd: 3.4 cm (< 3.3) RA Diam: 3.9 cm JENNIFER Planimetry: 2.3 cm LALs A4C: 4.4 cm LAAs A4C: 13.6 cm LAESV A-L A4C: 35 ml LAESV MOD A4C: 30 ml Ao Diam: 3.8 cm (2.0 - 3.7) AV Cusp: 1.1 cm (1.5 - 2.6) EPSS: 0.5 cm LVOT Vmax: 0.69 m/s LVOT maxP.88 mmHg AV Vmax: 4.35 m/s AV maxP.71 mmHg JENNIFER Vmax, Pt: 0.7 cm AV Vmax: 3.10 m/s AV Vmean: 1.94 m/s AV maxP.69 mmHg AV meanP.75 mmHg AV Env.Ti: 231 ms AV VTI: 44.8 cm JENNIFER Vmax, Pt: 1.0 cm TR Vmax: 4.23 m/s TR maxP.74 mmHg RAP: 5.00 mmHg RVSP: 76.74 mmHg MV EF SLOPE: 125.38 mm/s (70 - 150) MV EXCURSION: 17.01 mm (> 18.000) FINDINGS -------- This was a technically difficult study with suboptimal apical views. The left ventricular size is normal. There is moderate concentric left ventricular hypertrophy. O verall left ventricular systolic function is moderately impaired with, an EF between 35 - 40 %. Domingo ral Doppler inflow pattern suggests diastolic filling abnormality {E/E'}. The right ventricle is mildly enlarged. The left atrium is mildly dilated. The right atrial size is normal. 5.0mg of Lumason was utilized for enhancement of images Interatrial and interventricular septum intact. There is no evidence of aortic regurgitation. There is mild aortic stenosis present. Peak/mean gr adient across the Aortic Valve is 38.69mmHg / 18.75mmHg. Mild mitral annular calcification present. Mild mitral regurgitation is present. Moderate to severe tricuspid regurgitation present. There is severe pulmonary hypertension. The r ight ventricular systolic pressure, as measured by Doppler, is 76.74mmHg. There is no pulmonic regurgitation present. The aortic root size is normal. IVC Not well visulized. There is no pericardial effusion. CONCLUSIONS -------- 1. The left ventricular size is normal. 2. There is moderate concentric left ventricular hypertrophy. 3. Overall left ventricular systolic function is moderately impaired with, an EF between 35 - 40 %. 4. Mitral Doppler inflow pattern suggest diastolic filling abnormality {E/E'}. 5. The right ventricle is mildly enlarged. 6. The left atrium is mildly dilated. 7. There is moderate aortic stenosis present. 8. Peak/mean gradient across the Aortic Valve is 38.69mmHg / 18.75mmHg. 9. Mild mitral annular calcification present. 10. Mild mitral regurgitation is present. 11. Moderate to severe tricuspid regurgitation present. 12. There is severe pulmonary hypertension. 13. The right ventricular systolic pressure, as measured by Doppler, is 76.74mmHg. 14. The aortic root size is normal. FREIGHT TRAFFIC CONSULTANT: Tati Costa RDCS
--- NOTE | 2019-11-16 10:30 | P.PN ---
Subjective Progress Note Date: 11/16/19 Prem Dorsey is an 79 year old male, who presented to [facility] emergency room with a chief complaint of abdominal pain, patient stated that pain woke him up from his sleep around 4:30 this morning, he describes severe pain in the epigastric and right upper quadrant area, there was no nausea or vomiting and no diarrhea, he was evaluated in the emergency room his temperature on presentation was 98.7 pulse 79 respiration 17 blood pressure 96/72 and pulse ox 99% on 2 L nasal cannula, his white blood count was elevated at 13.2 hemoglobin 12.5 and platelet count 247. BUN was elevated at 34 and creatinine 1.38 computed tomography scan of the abdomen was done and revealed gallbladder h ydrops with surrounding edema suggestive of acute cholecystitis, with by related common bile duct at 1.1 cm, additional findings on computed tomography scan reviewed in details. Patient was admitted to medical floor under general surgery service, medical consultation was requested for management while hospitalized. patient was recently admitted to the hospital with throat mass, computed tomography scan was done, he was seen by ENT and was scheduled for outpatient follow-up for biopsy. Patient also has known history of previous bowel obstruction with partial bowel resection. He has known history of atrial fibrillation, COPD with chronic hypoxic respiratory failure, maintained on home oxygen, history of hypertension, history of coronary artery disease with history of myocardial infarction and angioplasty in 2008. Patient was seen and examined on the medical floor, his 2 daughters were in the room, and provided most of the answers, patient is quite somnolent as he received IV morphine and Tylenol did in the emergency room. He is arousable and answers few questions by yes and no and closes his eyes again, he is complaining of abdominal pain otherwise I cannot elicit any complaints on review of systems. On 11/16/2019 patient was seen and examined in the ICU, he is drowsy responsive in no apparent distress, during the last night, patient condition worsened, he developed hypotension, family were called and patient was transferred to ICU, family decided to proceed with comfort care only at this point. Objective - Vital Signs Vital signs: Vital Signs Temp 98.9 F 11/15/19 14:09 Pulse 104 H 11/15/19 20:14 Resp 20 11/15/19 19:23 BP 77/50 11/15/19 19:05 Pulse Ox 70 L 11/15/19 19:05 Intake & Output 11/15/19 11/16/19 11/16/19 18:59 06:59 18:59 Intake Total 580 19.635 Output Total 475 Balance 105 19.635 Weight 58.967 kg Intake: IV 580 Sodium Chloride 0.9% 1, 480 000 ml @ 60 mls/hr IV . [id number] ZEYNEP Rx#:[id number] Sodium Chloride 0.9% 500 100 ml 500 ml @ 999 mls/hr IV .Q31M STA Rx#:[id number] Intake, IV Titration 19.635 Amount Morphine Sulfate (100 mg/ 19.635 2 ml) 100 mg In Sodium Chloride 0.9% 100 ml @ 1 MG/HR 1.02 mls/hr IV . Q24H [facility] Rx#:[id number] Output: Urine 475 Other: Voiding Method Indwelling Catheter - Exam In general patient is somnolent arousable in no apparent distress HEENT head normocephalic and atraumatic Neck is supple no JVD no goiter no lymphadenopathy Chest exam reveals a few scattered rhonchi no wheezing Cardiac exam reveals regular heart sounds no gallops no murmurs Abdomen is soft with epigastric and right upper quadrant tenderness no organomegaly no palpable masses no rigidity or rebound Extremity exam reveals no edema no cyanosis or clubbing Neurological examination patient is somnolent otherwise no gross focal deficit - Labs CBC & Chem 7: 11/15/19 19:54 11/15/19 19:54 Labs: Abnormal Lab Results - Last 24 Hours (Table) 11/15/19 11/15/19 11/15/19 Range/Units 16:30 19:17 19:23 WBC (3.8-10.6) k/uL RBC (4.30-5.90) m/uL Hgb (13.0-17.5) gm/dL MCV (80.0-100.0) fL MCHC (31.0-37.0) g/dL Neutrophils # (1.3-7.7) k/uL Macrocytosis ABG pH 7.22 L (7.35-7.45) ABG pO2 71 L (83-108) mmHg ABG HCO3 18 L (21-25) mmol/L ABG O2 Saturation 91.4 L (94-97) % Sodium (137-145) mmol/L Potassium (3.5-5.1) mmol/L Carbon Dioxide (22-30) mmol/L BUN (9-20) mg/dL Creatinine (0.66-1.25) mg/dL Glucose (74-99) mg/dL POC Glucose (mg/dL) 118 H (75-99) mg/dL Plasma Lactic Acid Augusto (0.7-2.0) mmol/L Calcium (8.4-10.2) mg/dL Ur Specific Willard 1.045 H (1.001-1.035) Urine Protein Trace H (Negative) 11/15/19 11/15/19 11/15/19 Range/Units 19:36 19:54 19:54 WBC 14.2 H (3.8-10.6) k/uL RBC 3.77 L (4.30-5.90) m/uL Hgb 12.8 L (13.0-17.5) gm/dL MCV 109.8 H D (80.0-100.0) fL MCHC 30.8 L (31.0-37.0) g/dL Neutrophils # 12.0 H (1.3-7.7) k/uL Macrocytosis Marked A ABG pH (7.35-7.45) ABG pO2 (83-108) mmHg ABG HCO3 (21-25) mmol/L ABG O2 Saturation (94-97) % Sodium 132 L (137-145) mmol/L Potassium 6.2 H* (3.5-5.1) mmol/L Carbon Dioxide 19 L (22-30) mmol/L BUN 36 H (9-20) mg/dL Creatinine 2.26 H (0.66-1.25) mg/dL Glucose 131 H (74-99) mg/dL POC Glucose (mg/dL) 123 H (75-99) mg/dL Plasma Lactic Acid Augusto (0.7-2.0) mmol/L Calcium 8.2 L (8.4-10.2) mg/dL Ur Specific Willard (1.001-1.035) Urine Protein (Negative) 11/15/19 Range/Units 19:54 WBC (3.8-10.6) k/uL RBC (4.30-5.90) m/uL Hgb (13.0-17.5) gm/dL MCV (80.0-100.0) fL MCHC (31.0-37.0) g/dL Neutrophils # (1.3-7.7) k/uL Macrocytosis ABG pH (7.35-7.45) ABG pO2 (83-108) mmHg ABG HCO3 (21-25) mmol/L ABG O2 Saturation (94-97) % Sodium (137-145) mmol/L Potassium (3.5-5.1) mmol/L Carbon Dioxide (22-30) mmol/L BUN (9-20) mg/dL Creatinine (0.66-1.25) mg/dL Glucose (74-99) mg/dL POC Glucose (mg/dL) (75-99) mg/dL Plasma Lactic Acid Augusto 6.6 H* (0.7-2.0) mmol/L Calcium (8.4-10.2) mg/dL Ur Specific Willard (1.001-1.035) Urine Protein (Negative) Assessment and Plan Plan: 1. Abdominal pain, likely acute cholecystitis 2. Recent diagnosis of throat mass highly suggestive of throat cancer, awaiting biopsy. 3. Previous history of bowel obstruction requiring partial bowel resection 4. Advanced COPD with chronic hypoxic respiratory failure requiring home oxygen use. 5. Previous history of gastrointestinal bleeding 6. Previous history of coronary artery disease, with history of angioplasty in 2008 7. Underlying history of hypertension 8. Underlying history of atrial fibrillation, maintained on anticoagulation with Eliquis At this time patient is admitted to medical floor, he was started on IV Zosyn Elliquis is on hold in anticipation of surgery, we will place patient on subcu heparin Obtain echocardiogram and cardiology consult for preoperative evaluation and clearance Prognosis is guarded will follow closely
--- NOTE | 2019-11-16 10:43 | P.PN ---
Subjective Progress Note Date: 11/16/19 The patient had presented to the ED with complaints of abdominal pain and workup suggestive of acute cholecystitis. He was started on IV antibiotics, pain control and his elequis was held for possible surgery. Last evening his condition worsened and he was moved to ICU. The family has decided to make him comfort care Objective - Vital Signs Vital signs: Vital Signs Temp 98.9 F 11/15/19 14:09 Pulse 104 H 11/15/19 20:14 Resp 20 11/15/19 19:23 BP 77/50 11/15/19 19:05 Pulse Ox 70 L 11/15/19 19:05 Intake & Output 11/15/19 11/16/19 11/16/19 18:59 06:59 18:59 Intake Total 580 19.635 Output Total 475 Balance 105 19.635 Weight 58.967 kg Intake: IV 580 Sodium Chloride 0.9% 1, 480 000 ml @ 60 mls/hr IV . [id number] ZEYNEP Rx#:[id number] Sodium Chloride 0.9% 500 100 ml 500 ml @ 999 mls/hr IV .Q31M STA Rx#:[id number] Intake, IV Titration 19.635 Amount Morphine Sulfate (100 mg/ 19.635 2 ml) 100 mg In Sodium Chloride 0.9% 100 ml @ 1 MG/HR 1.02 mls/hr IV . Q24H ZEYNEP Rx#:[id number] Output: Urine 475 Other: Voiding Method Indwelling Catheter - Constitutional Constitutional Comment(s): eyes closed, not responding to verbal stimuli - Labs CBC & Chem 7: 11/15/19 19:54 11/15/19 19:54 Labs: Abnormal Lab Results - Last 24 Hours (Table) 11/15/19 11/15/19 11/15/19 Range/Units 16:30 19:17 19:23 WBC (3.8-10.6) k/uL RBC (4.30-5.90) m/uL Hgb (13.0-17.5) gm/dL MCV (80.0-100.0) fL MCHC (31.0-37.0) g/dL Neutrophils # (1.3-7.7) k/uL Macrocytosis ABG pH 7.22 L (7.35-7.45) ABG pO2 71 L (83-108) mmHg ABG HCO3 18 L (21-25) mmol/L ABG O2 Saturation 91.4 L (94-97) % Sodium (137-145) mmol/L Potassium (3.5-5.1) mmol/L Carbon Dioxide (22-30) mmol/L BUN (9-20) mg/dL Creatinine (0.66-1.25) mg/dL Glucose (74-99) mg/dL POC Glucose (mg/dL) 118 H (75-99) mg/dL Plasma Lactic Acid Augusto (0.7-2.0) mmol/L Calcium (8.4-10.2) mg/dL Ur Specific Ruth 1.045 H (1.001-1.035) Urine Protein Trace H (Negative) 11/15/19 11/15/19 11/15/19 Range/Units 19:36 19:54 19:54 WBC 14.2 H (3.8-10.6) k/uL RBC 3.77 L (4.30-5.90) m/uL Hgb 12.8 L (13.0-17.5) gm/dL MCV 109.8 H D (80.0-100.0) fL MCHC 30.8 L (31.0-37.0) g/dL Neutrophils # 12.0 H (1.3-7.7) k/uL Macrocytosis Marked A ABG pH (7.35-7.45) ABG pO2 (83-108) mmHg ABG HCO3 (21-25) mmol/L ABG O2 Saturation (94-97) % Sodium 132 L (137-145) mmol/L Potassium 6.2 H* (3.5-5.1) mmol/L Carbon Dioxide 19 L (22-30) mmol/L BUN 36 H (9-20) mg/dL Creatinine 2.26 H (0.66-1.25) mg/dL Glucose 131 H (74-99) mg/dL POC Glucose (mg/dL) 123 H (75-99) mg/dL Plasma Lactic Acid Augusto (0.7-2.0) mmol/L Calcium 8.2 L (8.4-10.2) mg/dL Ur Specific Ruth (1.001-1.035) Urine Protein (Negative) 09/05/20 Range/Units 19:54 WBC (3.8-10.6) k/uL RBC (4.30-5.90) m/uL Hgb (13.0-17.5) gm/dL MCV (80.0-100.0) fL MCHC (31.0-37.0) g/dL Neutrophils # (1.3-7.7) k/uL Macrocytosis ABG pH (7.35-7.45) ABG pO2 (83-108) mmHg ABG HCO3 (21-25) mmol/L ABG O2 Saturation (94-97) % Sodium (137-145) mmol/L Potassium (3.5-5.1) mmol/L Carbon Dioxide (22-30) mmol/L BUN (9-20) mg/dL Creatinine (0.66-1.25) mg/dL Glucose (74-99) mg/dL POC Glucose (mg/dL) (75-99) mg/dL Plasma Lactic Acid Augusto 6.6 H* (0.7-2.0) mmol/L Calcium (8.4-10.2) mg/dL Ur Specific Ruth (1.001-1.035) Urine Protein (Negative) Assessment and Plan (1) Confusion Current Visit: Yes Status: Acute Code(s): R41.0 - DISORIENTATION, UNSPECIFIED SNOMED Code(s): 298050142 (2) Abdominal pain Current Visit: Yes Status: Acute Code(s): R10.9 - UNSPECIFIED ABDOMINAL PAIN SNOMED Code(s): 76139297 (3) Acute cholecystitis Current Visit: Yes Status: Acute Code(s): K81.0 - ACUTE CHOLECYSTITIS SNOMED Code(s): 19015120 (4) Hyperkalemia Current Visit: Yes Status: Acute Code(s): E87.5 - HYPERKALEMIA SNOMED Code(s): 01357500 (5) Lesion of uvula Current Visit: No Status: Acute Code(s): K13.70 - UNSPECIFIED LESIONS OF ORAL MUCOSA SNOMED Code(s): 745213536 (6) Acidosis, lactic Current Visit: Yes Status: Acute Code(s): E87.2 - ACIDOSIS SNOMED Code(s): 39802197 Plan: Dicussion was held with his daughter. She and her sister have made the patient comfort care. If his condition improves, please contact me and I would be happy to reevaluate him for possible surgery
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
--- NOTE | 2019-11-19 15:54 | P.DS ---
Providers Date of admission: 11/15/19 08:03 Expected date of discharge: 11/16/19 Attending physician: Carlo Kennedy Consults: 11/15/19 08:04 Consult Physician Stat Consulting Provider: Lucy Miller Consult Reason/Comments: Acute cholecystitis, severe abdominal pain Do you want consulting provider notified?: Already Contacted 11/15/19 11:30 Consult Physician Routine Consulting Provider: Fawad Ortega Consult Reason/Comments: surgical clearance Do you want consulting provider notified?: Yes 11/15/19 19:19 Consult Physician Stat Consulting Provider: Osmar Ennis Consult Reason/Comments: icu Do you want consulting provider notified?: Yes 11/15/19 23:32 Consult Physician Routine Consulting Provider: Tatiana Campos Consult Reason/Comments: abd sepsis Do you want consulting provider notified?: Yes Primary care physician: Carlo Brent [facility] Course: Diagnosis on discharge: 1. Abdominal pain, likely acute cholecystitis. 2. Recent diagnosis of throat mass highly suggestive of throat cancer, awaiting biopsy. 3. Previous history of bowel obstruction requiring partial bowel resection 4. Advanced COPD with chronic hypoxic respiratory failure requiring home oxygen use. 5. Previous history of gastrointestinal bleeding 6. Previous history of coronary artery disease, with history of angioplasty in 2008 7. Underlying history of hypertension 8. Underlying history of atrial fibrillation, maintained on anticoagulation with [facility] course: Prem Dorsey is an 79 year old male, who presented to [facility] emergency room with a chief complaint of abdominal pain, patient stated that pain woke him up from his sleep around 4:30 this morning, he describes severe pain in the epigastric and right upper quadrant area, there was no nausea or vomiting and no diarrhea, he was evaluated in the emergency room his temperature on presentation was 98.7 pulse 79 respiration 17 blood pressure 96/72 and pulse ox 99% on 2 L nasal cannula, his white blood count was elevated at 13.2 hemoglobin 12.5 and platelet count 247. BUN was elevated at 34 and creatinine 1.38 computed tomography scan of the abdomen was done and revealed gallbladder hydrops with surrounding edema suggestive of acute cholecystitis, with by related common bile duct at 1.1 cm, additional findings on computed tomography scan reviewed in details. Patient was admitted to medical floor under general surgery service, medical consultation was requested for management while hospitalized. patient was recently admitted to the hospital with throat mass, computed tomography scan was done, he was seen by ENT and was scheduled for outpatient follow-up for biopsy. Patient also has known history of previous bowel obstruction with partial bowel resection. He has known history of atrial fibrillation, COPD with chronic hypoxic respiratory failure, maintained on home oxygen, history of hypertension, history of coronary artery disease with history of myocardial infarction and angioplasty in 2008. Patient was seen and examined on the medical floor, his 2 daughters were in the room, and provided most of the answers, patient is quite somnolent as he received IV morphine and Tylenol did in the emergency room. He is arousable and answers few questions by yes and no and closes his eyes again, he is complaining of abdominal pain otherwise I cannot elicit any complaints on review of systems. On 11/16/2019 patient was seen and examined in the ICU, he is drowsy responsive in no apparent distress, during the last night, patient condition worsened, he developed hypotension, family were called and patient was transferred to ICU, family decided to proceed with comfort care only at this point. Patient was maintained on comfort care only he expiresd on 11/16/2019 Patient Condition at Discharge: Stable Plan - Discharge Summary Discharge Rx Participant: No New Discharge Prescriptions: No Action Nitroglycerin Sl Tabs [Nitrostat] 0.4 mg SUBLINGUAL Q5M PRN PRN Reason: Chest Pain ALPRAZolam 0.25 mg PO Q8H PRN PRN Reason: Anxiety Metoprolol Tartrate 25 mg PO BID Omeprazole [PriLOSEC] 40 mg PO AC-BRKFST #90 cap Apixaban [Eliquis] 2.5 mg PO BID Aspirin EC [Ecotrin Low Dose] 81 mg PO DAILY Sertraline HCl [Zoloft] 25 mg PO HS Ergocalciferol [Vitamin D2 (DRISDOL)] 50,000 unit PO MO Albuterol Inhaler [Ventolin Hfa Inhaler] 2 puff INHALATION RT-Q4H PRN PRN Reason: Shortness Of Breath Butalb/APAP/Caff 50-325-40Mg [Fioricet 50-325-40] 1 tab PO Q8H PRN PRN Reason: Migraine Headache Losartan Potassium 100 mg PO DAILY Morphine Sulfate ER [Ms Contin] 30 mg PO Q8H Discharge Medication List ALPRAZolam 0.25 mg PO Q8H PRN 03/18/14 [History] Nitroglycerin Sl Tabs [Nitrostat] 0.4 mg SUBLINGUAL Q5M PRN 03/18/14 [History] Metoprolol Tartrate 25 mg PO BID 03/19/14 [History] Omeprazole [PriLOSEC] 40 mg PO AC-BRKFST #90 cap 03/21/14 [Rx] Albuterol Inhaler [Ventolin Hfa Inhaler] 2 puff INHALATION RT-Q4H PRN 08/20/19 [History] Apixaban [Eliquis] 2.5 mg PO BID 08/20/19 [History] Aspirin EC [Ecotrin Low Dose] 81 mg PO DAILY 08/20/19 [History] Ergocalciferol [Vitamin D2 (DRISDOL)] 50,000 unit PO MO 08/20/19 [History] Sertraline HCl [Zoloft] 25 mg PO HS 08/20/19 [History] Butalb/APAP/Caff 50-325-40Mg [Fioricet 50-325-40] 1 tab PO Q8H PRN 11/03/19 [History] Losartan Potassium 100 mg PO DAILY 11/03/19 [History] Morphine Sulfate ER [Ms Contin] 30 mg PO Q8H 11/15/19 [History] Follow up Appointment(s)/Referral(s): Carlo Kennedy MD [Primary Care Provider] - 1-2 days Discharge Disposition: - Preliminary Cause of Preliminary Cause of : Cholecystitis with sepsis
--- NOTE | 2019-11-20 11:13 | CDI ---
Documentation Clarification Form Date: 11/20/19 From: Ngozi Brown Phone: If you have a question about this query, please contact Pinky Woodward, Hub Associate at [phone] between 8am and 5pm. Admit Date: 11/15/19 Discharge Date: 11/16/19 Patient Name: ANGELICA BRAXTON Visit Number: [id number] ATTENTION: The Clinical Documentation Specialists (CDI) and [facility] Coding Staff appreciate your assistance in clarifying documentation. Please respond to the clarification below the line at the bottom and electronically sign. The CDI & [facility] Coding staff will review the response and follow-up if needed. Please note: Queries are made part of the Legal Health Record. If you have any questions, please contact the author of this message via ITS. Dear Dr. Carlo Kennedy, The patient presented with epigastric and RUQ abdominal pain. 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 Yes No Link or clarify if there is associated (due to/with): Organ failure Shock SIRS Criteria (2 or more of the following may indicate SIRS): -Temperature < 96.8F (36C) or > 101.0F (38.3C) -Heart Rate > 90 bpm -Respiratory Rate > 20 breaths/min or PaCO2 < 32 mmHg -White Blood Cell Count > 12,000 or < 4,000 cells/mm3 or > 10% bands -Lactate >2.0 mmol/L (>4.0 is equivalent to septic shock) YES POA MTDD
--- NOTE | 2019-11-20 11:27 | CDI ---
Documentation Clarification Form Date: 11/20/19 From: Ngozi Brown Phone: If you have a question about this query, please contact Pinky Woodward, [employer]yer at [phone] between 8am and 5pm. Admit Date: 11/15/19 Discharge Date: 11/16/19 Patient Name: ANGELICA BRAXTON Visit Number: [id number] ATTENTION: The Clinical Documentation Specialists (CDI) and [facility] Coding Staff appreciate your assistance in clarifying documentation. Please respond to the clarification below the line at the bottom and electronically sign. The CDI & [facility] Coding staff will review the response and follow-up if needed. Please note: Queries are made part of the Legal Health Record. If you have any questions, please contact the author of this message via ITS. Dear Dr. Carlo Kennedy, Altered Mental Status was documented in the 11/[address] Ennis. 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 Vitals signs 14 hrs after admission: P-70/112, R-18/20, BP- 77/50, O2 sat-70 Labs: WBC 14 hrs after initial: 14.2, Lactic acid 13 hrs after initial: 6.6, BC- [place] ABD X Ray: GALLBLADDER HYDROPS WITH MODERATE SURROUNDING EDEMA TRACKING DOWN THE RIGHT PARACOLIC GUTTER.FINDINGS HIGHLY SUGGESTIVE OF ACUTE CHOLECYSTITIS. Treatment: IV fluid bolus, IV Zosyn In your professional opinion, please clarify the etiology of the Altered Mental Status, if known. Delirium (specify cause): Dementia (if know, specify Type and if with/without Behavioral Disturbance) Encephalopathy (specify Type and Underlying Medical Illness) Other condition (please specify) Unable to determine unable to determine MTDD
--- NOTE | 2019-12-01 12:40 | CDI ---
Documentation Clarification Form Date: 12/01/19 From: Ngozi Brown Phone: If you have a question about this query, please contact Pinky Woodward, Psychological Anthropologist at [phone] between 8am and 5pm. Admit Date: 11/15/19 Discharge Date: 11/16/19 Patient Name: ANGELICA BRAXTON Visit Number: [id number] ATTENTION: The Clinical Documentation Specialists (CDI) and [facility] Coding Staff appreciate your assistance in clarifying documentation. Please respond to the clarification below the line at the bottom and electronically sign. The CDI & [facility] Coding staff will review the response and follow-up if needed. Please note: Queries are made part of the Legal Health Record. If you have any questions, please contact the author of this message via ITS. Dear Dr. Carlo Kennedy, The diagnosis abdominal sepsis was documented in Dr Ennis's consult and in your DS. History/Risk Factors: sepsis and acute cholecystitis, chronic hypoxic respiratory failure, GB hydrops, cachexia, chronic atrial fibrillation, cardiomyopathy Clinical Indicators: CT abdomen and pelvis was noted and consistent with acute cholecystitis Treatment: IV fluids, IV MS/Dilaudid, IV Zosyn Please clarify if the abdominal sepsis means the patient had peritoneal abscess: Present/active/treated this admission No peritoneal abscess Other, please specify Clinically unable to determine no peritoneal abscess MTDD
--- NOTE | 2019-12-04 15:03 | CDI ---
Documentation Clarification Form Mortality Review Date: 12/04/2019 02:47:59 PM From: Eli Rivera RN, CCDS Admit Date: 11/15/2019 08:03:00 AM Patient Name: Prem Dorsey Visit Number: [id number] Discharge Date: 11/16/2019 12:00:00 PM ATTENTION: The Clinical Documentation Specialists (CDI) and [facility] Coding Staff appreciate your assistance in clarifying documentation. Please respond to the clarification below the line at the bottom and electronically sign. The CDI & [facility] Coding staff will review the response and follow-up if needed. Please note: Queries are made part of the Legal Health Record. If you have any questions, please contact the author of this message via ITS. Dr. Carlo Kennedy CHF is documented in the PMH and requires further specificity to accurately reflect the patient's SOI/ROM. History/Risk Factors: Heart Failure, chronic hypoxic respiratory failure, cardiomyopathy, chronic atrial fib, CAD with stents Clinical Indicators: 11/15/2019 0637 Admission VS/Pulse OX: Temp 98.7, Hr 79, RR 17, B/P 96/72, Spo2 99% 2L NC BNP: not done 11/15/2019 Echocardiogram Results: EF 35-40%, moderate concentric LVH. Severe pulmonary HTN 11/14 Chest X Ray: "There is no heart failure nor confluent pneumonic infiltrate." Treatment: no cardiac meds given this admission Home meds: Lopressor 25 mg PO BID Cozaar 100 mg PO QD 11/14 1L 0.9% NS IVF Bolus In your professional opinion, can you please clarify the acuity and type of CHF if known? Chronic Systolic Heart Failure Chronic Systolic & Diastolic Heart Failure: Unable to Determine Other, please specify (Last Revision: June 2017) chronic systolic heart failure MTDD
== END 2019-11-16 12:00 | disposition expired | DRG 444 ==
LOC: EC 06:20 → 4SSUR 08:03 → 2SICU 19:36
PROVIDERS: ADMIT Internal Medicine; ATTEND Internal Medicine
DX: K81.0 Acute cholecystitis (principal); A41.9 Sepsis, unspecified organism; J96.11 Chronic respiratory failure with hypoxia; R64 Cachexia; E87.2 Acidosis; I42.9 Cardiomyopathy, unspecified; K82.1 Hydrops of gallbladder; I48.20 Chronic atrial fibrillation, unspecified; I50.22 Chronic systolic (congestive) heart failure; I95.9 Hypotension, unspecified; I11.0 Hypertensive heart disease with heart failure; C05.1 Malignant neoplasm of soft palate; J44.9 Chronic obstructive pulmonary disease, unspecified; E86.0 Dehydration; Z51.5 Encounter for palliative care; Z66 Do not resuscitate; R41.0 Disorientation, unspecified; E87.5 Hyperkalemia; R59.0 Localized enlarged lymph nodes; E78.5 Hyperlipidemia, unspecified; I25.10 Atherosclerotic heart disease of native coronary artery without angina pectoris; I25.2 Old myocardial infarction; Z99.81 Dependence on supplemental oxygen; Z79.01 Long term (current) use of anticoagulants; Z79.82 Long term (current) use of aspirin; Z79.891 Long term (current) use of opiate analgesic; Z79.899 Other long term (current) drug therapy; Z87.891 Personal history of nicotine dependence; Z95.5 Presence of coronary angioplasty implant and graft; Z87.19 Personal history of other diseases of the digestive system; Z90.49 Acquired absence of other specified parts of digestive tract; Z86.79 Personal history of other diseases of the circulatory system; Z87.39 Personal history of other diseases of the musculoskeletal system and connective tissue; Z98.890 Other specified postprocedural states; Z88.1 Allergy status to other antibiotic agents; Z80.0 Family history of malignant neoplasm of digestive organs; Z80.3 Family history of malignant neoplasm of breast; Z80.7 Family history of other malignant neoplasms of lymphoid, hematopoietic and related tissues
CPT/HCPCS: 36415; 36600; 71045; 74177; 80048; 80053; 81003; 82150; 82805; 83605; 83690; 83735; 84484; 85025; 85610; 85730; 93005; 93306; 94640; 96374; 96375; 99285